=== PATIENT | female | born 1955 | race Caucasian/White ===

== ENCOUNTER → 2016-05-30 | Outpatient (CLI) | payer BC | END | disposition home or self-care (01) | LOC: C.PAPS 16:05 | PROVIDERS: ATTEND Obstetrics & Gynecology | DX: Z01.419 Encounter for gynecological examination (general) (routine) without abnormal findings (principal) ==

== ENCOUNTER → 2017-05-01 | Outpatient (CLI) | payer BC ==
--- NOTE | 2017-05-02 07:47 | MAMMOGRAPHY REPORT ---
BILATERAL DIGITAL SCREENING MAMMOGRAM TOMOSYNTHESIS WITH CAD: 05/01/2017 CLINICAL HISTORY: Routine screening examination. TECHNIQUE: Breast tomosynthesis in addition to standard 2D mammography was performed. Current study was also evaluated with a Computer Aided Detection (CAD) system. COMPARISON: Comparison is made to exams dated: 04/28/2016 mammogram, 04/27/2015 mammogram, 04/24/2014 m ammogram, 04/23/2013 mammogram, 04/20/2012 mammogram, and 04/19/2011 mammogram - [facility]. BREAST COMPOSITION: The tissue of both breasts is heterogeneously dense, which may obscure small mas ses. FINDINGS: An asymmetry in the far superior right breast on the MLO view has decreased in size compari ng back to the 2008 mammograms, confirming benignity. No new suspicious mass, architectural distorti on or cluster of microcalcifications is seen. IMPRESSION: ACR BI-RADS CATEGORY 1: NEGATIVE There is no mammographic evidence of malignancy. A 1 year screening mammogram is recommended. The pa tient will receive written notification of the results. Approximately 10% of breast cancers are not detected with mammography. A negative mammographic report should not delay biopsy if a clinically suggestive mass is present. Katherine Cleary M.D. ay/:05/01/2017 17:00:10 Guest Service Supervisor: Anila HERNANDEZ(Deanna)(M), [facility] letter sent: Normal 1/2 BI-RADS Code: ACR BI-RADS Category 1: Negative
== END | disposition home or self-care (01) ==
LOC: C.MAMM 08:28
PROVIDERS: ATTEND Obstetrics & Gynecology
DX: Z12.31 Encounter for screening mammogram for malignant neoplasm of breast (principal)

== ENCOUNTER 2019-10-18 10:35 | Inpatient (IN) ==
[2019-10-18] MEDS ORDERED: ONDANSETRON INJ 2 MG/ML 2 ML VIAL IV STA ×2 (11:28→14:51)
[2019-10-18] MEDS ORDERED: SODIUM CHLORIDE 0.9% 1000ML 1,000 ML IV SCH (11:29)
--- NOTE | 2019-10-18 11:40 | Emergency Department Note ---
History of Present Illness General Chief complaint: Abdominal Pain Stated complaint: ABD PAIN Time Seen by Provider: 10/18/19 11:07 History of Present Illness Maximum Pain Intensity: 7 Patient is a 63-year-old female with past medical history significant for diabetes, and dyslipidemia who presents the emergency department for evaluation of epigastric abdominal pain times almost 2 days. Patient states that Monday evening she had chicken, Doris he then ate coconut Popsicle for dinner. Afterwards, she developed a very sharp, stabbing epigastric pain that radiated through to her back with associated nausea and vomiting. She rated her pain a 10/10. Pain continued to the evening and made it difficult for her to sleep. She felt a little bit better in the morning and tried to eat, had a mushroom omelette and the pain returned. She again had more nausea and vomiting. She h as not had anything further to eat since then, but has been drinking and tolerating liquids. Pain was a 7/10 yesterday, and persisted this morning, she rates it a 6/10 currently. She now describes it more of an aching discomfort, with associated nausea. She called her primary care provider and was referred to the emergency department. She denies any pain radiate up into her chest, no shortness of breath no pain with deep breathing, no palpitations. Patient reports that she had episodes of pain similar to this in August of this year and last February. She has never had work-up for it. She denies any urinary symptoms other than decreased urinary output. She has had normal bowel movements for her, no blood or melena. No hematemesis. Home Medications Home Medications Medication Instructions Recorded Confirmed Type atorvastatin 40 mg PO HS 03/20/18 10/18/19 History ibuprofen [Advil] 200 mg PO Q6H PRN 10/18/19 10/18/19 History lisinopril 10 mg PO HS 10/18/19 10/18/19 History sitagliptin [Januvia] 50 mg PO QAM 10/18/19 10/18/19 History Allergies Allergy/AdvReac Type Severity Reaction Status Date / Time amoxicillin Allergy Mild Rash Verified 10/18/19 11:45 Past Med/Surg History Medical History Diabetes mellitus, type 2 (Chronic) Genital herpes Hyperlipidemia (Chronic) Varicose veins of legs Surgical History History of bilateral tubal ligation History of colonoscopy History of surgery had endovenous laser therapy 2018 to bilt legs History of tooth extraction wisdom teeth Family History Sister Family history of reaction to anesthesia sister with down's syndrome "never woke up the same after hip replace ment surgery" Mother Family history of diabetes mellitus Father Family history of diabetes mellitus Brother Family history of diabetes mellitus Grandfather Family history of diabetes mellitus maternal and paternal Grandmother Family history of diabetes mellitus maternal and paternal Denies family history of Ovarian cancer Breast cancer Colorectal cancer Social History Preferred Language: Irish Communication Ability: Effective 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 Beliefs That Will Affect Care: None Current Living Situation: Spouse and Family Current Living Situation Comment: Lives with and step son Feels Safe at Home: Yes Smoking Status: Never smoker Second Hand Exposure: Yes ( smokes) ; Hx Alcohol Use: Yes Alcohol type: beer, wine and hard liquor Hx Substance Use: No Review of Systems A total of 10 systems reviewed and were otherwise negative Physical Exam Vital Signs Vital Signs - 24 hr 10/18/19 10:42 10/18/19 11:58 10/18/19 13:49 Temperature 36.8 C Temperature Source Oral Pulse Rate 86 Pulse Rate [Right Finger] 78 64 Pulse Rhythm Regular Pulse Rhythm [Right Finger] Pulse Strength Normal Respiratory Rate 18 18 14 Respiratory Effort / Characteristics Non-Labored Non-Labored Respiratory Depth Normal Normal Respiratory Pattern Regular Blood Pressure 159/99 H Blood Pressure [Left Arm] 190/94 H 184/88 H Blood Pressure Mean 119 Blood Pressure Mean [Left Arm] 126 120 Blood Pressure Position Sitting Pulse Oximetry 94 94 96 Oxygen Delivery Method Room Air Room Air Sepsis Recent Fever Within 48 Hours No Sepsis Action Taken by Nursing No Action Required 10/18/19 15:00 Temperature Temperature Source Pulse Rate Pulse Rate [Right Finger] 74 Pulse Rhythm Pulse Rhythm [Right Finger] Regular Pulse Strength Respiratory Rate 18 Respiratory Effort / Characteristics Non-Labored Respiratory Depth Normal Respiratory Pattern Blood Pressure Blood Pressure [Left Arm] 187/101 H Blood Pressure Mean Blood Pressure Mean [Left Arm] 129 Blood Pressure Position Pulse Oximetry 94 Oxygen Delivery Method Room Air Sepsis Recent Fever Within 48 Hours Sepsis Action Taken by Nursing CONSTITUTIONAL: Patient is a well-appearing 63-year-old female who is awake and alert and in no acute distress. EYES: Pupils equal, round, reactive to light and accommodation. EOMs intact without nystagmus. Sclera are anicteric. ENT: Tympanic membranes intact, with normal landmarks. External canals are clear. Oral and nasopharynx are clear. Mucous membranes are moist, no lesions, tongue and gums appear normal. NECK: No bruits auscultated. Supple without lymphadenopathy. No thyromegaly. No meningeal signs. Full active range of motion without discomfort. CARDIOVASCULAR: Regular rate and rhythm, with normal S1 and S2, no murmur or gallop or rub is heard. No carotid bruits auscultated. No JVD. Peripheral pulses easily palpable. RESPIRATORY: Breath sounds equal and clear to auscultation without wheezes, rales, or rhonchi heard. Full and equal chest expansion without accessory muscle use or retractions. ABDOMEN: Bowel sounds are present. Abdomen is soft, nondistended, nontender to percussion throughout. She is mildly tender in the epigastric region, slightly in the right upper quadrant, without guarding or rebound. Negative Tirado sign. There is no pain in the right lower quadrant over McBurney's point. INTEGUMENTARY: No lesions or rash, normal skin turgor. LYMPH: No lymphadenopathy. Course Course The patient was seen and assessed as above. Old records were reviewed. She presents to the emergency department for evaluation of epigastric abdominal pain with associated nausea and vomiting x2 days. IV lock was initiated and laboratory studies were collected. She was offered medication for discomfort, but declined. She was medicated with Zofran and hydrated with normal saline solution. CBC with differential, CMP, lipase, urine dip were collected. Right upper quadrant ultrasound was performed. Laboratory studies noted a normal white count at 10,200, left shift and bandemia noted however, she is not anemic. Electrolytes and renal functions are within normal limits. Total bilirubin is elevated at 2.5, transaminases are normal, lipase is not elevated. Patient's ultrasound noted gallstones, sludge, gallbladder wall thickening and trace pericholecystic fluid, no ductal dilatation. Findings are concerning for acute cholecystitis. Patient was reassessed after she returned from ultrasound. She was made aware of the results of her laboratory studies and her ultrasound findings. Discussed with her that I would place a consultation with general surgery. Patient was reviewed with Jered Malloy PA-C. Patient was seen by surgical [facility]. They have ordered an MRCP, and according to his dictation have planned to admit the pat ient for possible surgical intervention tomorrow. Patient was reassessed by myself. She was still fairly uncomfortable. She was agreeable to something for discomfort and was ordered morphine 4 mg and Zofran 4 mg IV. Surgical plan was reviewed with her, and she expressed understanding. She is awaiting bed assignment. Administered Medications Discontinued Medications Sodium Chloride (Nss 1000ml) 1,000 mls @ 999 mls/hr IV .Q1H1M ROXANA Stop: 10/18/19 12:29 Last Admin: 10/18/19 11:58 Dose: 999 mls/hr Documented by: [id number] Morphine Sulfate (Morphine Sulfate) 4 mg IV NOW STA Stop: 10/18/19 14:52 Last Admin: 10/18/19 15:08 Dose: 4 mg Documented by: [id number] Ondansetron HCl (Zofran) 4 mg IV NOW STA Stop: 10/18/19 11:29 Last Admin: 10/18/19 11:58 Dose: 4 mg Documented by: [id number] Ondansetron HCl (Zofran) 4 mg IV NOW STA Stop: 10/18/19 14:52 Last Admin: 10/18/19 15:08 Dose: 4 mg Documented by: [id number] Medical Decision Making Differential Diagnosis Differential diagnoses entertained included GERD, gastritis, esophagitis, peptic ulcer disease, perforated ulcer, acute pancreatitis, acute cholecystitis, biliary colic, cholelithiasis, ascending cholangitis, among others. Medical Records Attestation: I reviewed the patient's medical records. Home Medications Current Medication List: was personally reviewed by me Laboratory Data Attestation: I reviewed the patient's lab results. Result diagrams: 10/18/19 11:45 10/18/19 11:45 Lab Results 10/18/19 10/18/19 10/18/19 Range/Units 11:45 11:45 11:45 WBC 10.29 (4.8-10.8) K/uL RBC 4.69 (4.2-5.4) M/uL Hgb 14.2 (12.0-16.0) g/dL Hct 41.4 (37-47) % MCV 88.3 (80-100) fL MCH 30.3 (25-34) pg MCHC 34.3 (32-36) g/dL RDW Std Deviation 41.3 (36.4-46.3) fL RDW Coeff of Debra 12.9 (11.5-14.5) % Plt Count 251 (130-400) K/uL MPV 10.2 (7.4-10.4) fL Immature Gran % (Auto) 0.3 % Neut % (Auto) 77.1 % Lymph % (Auto) 15.4 % Gregory % (Auto) 6.8 % Eos % (Auto) 0.3 % Baso % (Auto) 0.1 % Immature Gran # (Auto) 0.03 H (0.00-0.02) K/uL Neut # (Auto) 7.94 H (1.4-6.5) K/uL Lymph # (Auto) 1.58 (1.2-3.4) K/uL Gregory # (Auto) 0.70 H (0.11-0.59) K/uL Eos # (Auto) 0.03 (0-0.5) K/uL Baso # (Auto) 0.01 (0-0.2) K/uL Sodium 136 (136-145) mmol/L Potassium 3.6 (3.5-5.1) mmol/L Chloride 105 (98-107) mmol/L Carbon Dioxide 26 (21-32) mmol/L Anion Gap 5.0 (3-11) BUN 9 (7-18) mg/dl Creatinine 0.74 (0.6-1.2) mg/dl Est Cr Clr Drug Dosing 67.2 ml/min Est GFR ( Amer) 99.9 Est GFR (Non-Af Amer) 86.2 BUN/Creatinine Ratio 11.9 (10-20) Glucose 246 H (70-99) mg/dl Calcium 9.3 (8.5-10.1) mg/dl Total Bilirubin 2.5 H (0.2-1) mg/dl AST 12 L (15-37) U/L ALT 35 (12-78) U/L Alkaline Phosphatase 94 (45-117) U/L Total Protein 7.7 (6.4-8.2) gm/dl Albumin 4.0 (3.4-5.0) gm/dl Globulin 3.7 (2.5-4.0) gm/dl Albumin/Globulin Ratio 1.1 (0.9-2) Lipase 195 (73-393) U/L Urine Color Yellow Urine Appearance Clear (Clear) Urine pH 7.0 (4.5-7.5) POC Urine pH (4.5-7.5) Ur Specific Opal 1.012 (1.000-1.030) Urine Protein 2+ H (Negative) POC Urine Protein (Negative) Urine Glucose (UA) 2+ H (Negative) POC Ur Glucose (UA) (Normal) Urine Ketones Trace H (Negative) POC Urine Ketones (Negative) Urine Blood 1+ H (Negative) POC Urine Blood (Negative) Urine Nitrite Negative (Negative) POC Urine Nitrite (Negative) Urine Bilirubin Negative (Negative) POC Urine Bilirubin (Negative) Urine Urobilinogen Negative (Negative) POC Urine Urobilinogen (Normal) Ur Leukocyte Esterase Negative (Negative) POC U Leukocyte Esteras (Negative) Urine WBC (Auto) 1-5 (0-5) /hpf Urine RBC (Auto) 5-10 H (0-4) /hpf U Hyaline Cast (Auto) 0 (0-5) /lpf U Epithel Cells (Auto) 5-10 H (0-5) /lpf Urine Bacteria (Auto) Negative (Negative) 10/18/19 Range/Units Unknown WBC (4.8-10.8) K/uL RBC (4.2-5.4) M/uL Hgb (12.0-16.0) g/dL Hct (37-47) % MCV (80-100) fL MCH (25-34) pg MCHC (32-36) g/dL RDW Std Deviation (36.4-46.3) fL RDW Coeff of Debra (11.5-14.5) % Plt Count (130-400) K/uL MPV (7.4-10.4) fL Immature Gran % (Auto) % Neut % (Auto) % Lymph % (Auto) % Gregory % (Auto) % Eos % (Auto) % Baso % (Auto) % Immature Gran # (Auto) (0.00-0.02) K/uL Neut # (Auto) (1.4-6.5) K/uL Lymph # (Auto) (1.2-3.4) K/uL Gregory # (Auto) (0.11-0.59) K/uL Eos # (Auto) (0-0.5) K/uL Baso # (Auto) (0-0.2) K/uL Sodium (136-145) mmol/L Potassium (3.5-5.1) mmol/L Chloride (98-107) mmol/L Carbon Dioxide (21-32) mmol/L Anion Gap (3-11) BUN (7-18) mg/dl Creatinine (0.6-1.2) mg/dl Est Cr Clr Drug Dosing ml/min Est GFR ( Amer) Est GFR (Non-Af Amer) BUN/Creatinine Ratio (10-20) Glucose (70-99) mg/dl Calcium (8.5-10.1) mg/dl Total Bilirubin (0.2-1) mg/dl AST (15-37) U/L ALT (12-78) U/L Alkaline Phosphatase (45-117) U/L Total Protein (6.4-8.2) gm/dl Albumin (3.4-5.0) gm/dl Globulin (2.5-4.0) gm/dl Albumin/Globulin Ratio (0.9-2) Lipase (73-393) U/L Urine Color Urine Appearance (Clear) Urine pH (4.5-7.5) POC Urine pH 5 (4.5-7.5) Ur Specific Opal (1.000-1.030) Urine Protein (Negative) POC Urine Protein 3+ H (Negative) Urine Glucose (UA) (Negative) POC Ur Glucose (UA) 1000 H (Normal) Urine Ketones (Negative) POC Urine Ketones Negative (Negative) Urine Blood (Negative) POC Urine Blood 250 H (Negative) Urine Nitrite (Negative) POC Urine Nitrite Negative (Negative) Urine Bilirubin (Negative) POC Urine Bilirubin Negative (Negative) Urine Urobilinogen (Negative) POC Urine Urobilinogen Normal (Normal) Ur Leukocyte Esterase (Negative) POC U Leukocyte Esteras Negative (Negative) Urine WBC (Auto) (0-5) /hpf Urine RBC (Auto) (0-4) /hpf U Hyaline Cast (Auto) (0-5) /lpf U Epithel Cells (Auto) (0-5) /lpf Urine Bacteria (Auto) (Negative) Imaging Data Attestation: I personally reviewed and interpreted this imaging study as follows: Radiologist's Impression: BILIARY ULTRASOUND CLINICAL HISTORY: EPIGASTRIC PAIN X 2 DAYS COMPARISON STUDY: No previous studies for comparison. FINDINGS: The pancreas appears sonographically normal. There is a 1 cm nodule adjacent to the pancreatic head likely representing a peripancreatic lymph node. No focal hepatic masses are visualized. There is no ductal dilatation. The common bile duct measures 3.5 mm. There is no right-sided hydronephrosis. There is gallbladder wall thickening (3.9 mm.) The gallbladder contains stones and tumefactive sludge. There is persistent narrowing of the midportion of the gallbladder. A gallbladder stricture or mass cannot be excluded. IMPRESSION: 1. Gallstones and tumefactive sludge 2. Gallbladder wall thickening and trace pericholecystic fluid. 3. In the setting of right upper quadrant abdominal pain, the findings are suspicious for acute cholecystitis. A nuclear medicine hepatobiliary study could be obtained in follow-up to evaluate cystic duct patency is deemed clinically appropriate Blood Pressure Blood Pressure Findings: Elevated blood pressure Blood Pressure Disposition: elevated BP felt to be situational MDM Narrative See ED Course. Impression & Plan Acute cholecystitis Discharge Plan Visit Data Chief Complaint: Abdominal Pain Stated Complaint: ABD PAIN ED Provider: Grayson Garica ED Midlevel Provider: Paxton Ramírez Discharge Problem: Acute cholecystitis Patient Disposition: Being Evaluated by Surgeon Discharge Instructions Interventions: ED Discharge Assessment Last Done: 10/18/19 16:20 Forms Stand Alone Forms: [facility], Virtual Emergency Department, Important Visit Information Prescriptions Prescriptions: No Action atorvastatin 40 mg Tablet 40 mg PO HS RF: 0 lisinopril 10 mg tablet 10 mg PO HS RF: 0 Januvia 50 mg tablet 50 mg PO QAM RF: 0 ibuprofen [Advil] 200 mg Tablet 200 mg PO Q6H PRN (Reason: Pain) RF: 0 Referrals Referrals: Kwasi Gallardo Jr, DO [Primary Care Provider] -
[2019-10-18 12:06] LABS: POC Urine Bilirubin Negative (Negative); POC Urine Blood 250 (Negative); POC Urine Glucose 1000 (Normal); POC Urine Ketones Negative (Negative); POC Urine Leukocytes Negative (Negative); POC Urine Nitrite Negative (Negative); POC Urine Protein 3+ (Negative); POC Urine Urobilinogen Normal (Normal); POC Urine pH 5 (4.5-7.5)
[2019-10-18 12:13] LABS: Basophils # (auto) 0.01 K/uL (0-0.2); Basophils % (auto) 0.1 %; Eosinophils # (auto) 0.03 K/uL (0-0.5); Eosinophils % (auto) 0.3 %; Hematocrit (blood only) 41.4 % (37-47); Hemoglobin 14.2 g/dL (12.0-16.0); Immature Granulocytes # (auto) 0.03 K/uL (0.00-0.02); Immature Granulocytes % (auto) 0.3 %; Lymphocytes # (auto) 1.58 K/uL (1.2-3.4); Lymphocytes % (auto) 15.4 %; Mean Corpuscular Hemoglobin 30.3 pg (25-34); Mean Corpuscular Hgb Conc 34.3 g/dL (32-36); Mean Corpuscular Volume 88.3 fL (80-100); Mean Platelet Volume 10.2 fL (7.4-10.4); Monocytes % (auto) 6.8 %; Neutrophils # (auto) 7.94 K/uL (1.4-6.5); Neutrophils % (auto) 77.1 %; Platelet Count 251 K/uL (130-400); RDW Coefficient of Variation 12.9 % (11.5-14.5); RDW Standard Deviation 41.3 fL (36.4-46.3); Red Blood Count 4.69 M/uL (4.2-5.4); White Blood Count 10.29 K/uL (4.8-10.8)
[2019-10-18 12:38] LABS: BUN Creatinine Ratio 11.9 (10-20); Calcium 9.3 mg/dl (8.5-10.1); Creatinine Clr Calc Pharmacy 67.2 ml/min; Est GFR (African American) 99.9; Est GFR (Non-African American) 86.2; Potassium 3.6 mmol/L (3.5-5.1)
[2019-10-18 12:41] LABS: Albumin Globulin Ratio 1.1 (0.9-2); Bilirubin,Total 2.5 mg/dl (0.2-1); Globulin 3.7 gm/dl (2.5-4.0); Total Protein 7.7 gm/dl (6.4-8.2)
--- NOTE | 2019-10-18 12:46 | Ultrasound Report ---
BILIARY ULTRASOUND CLINICAL HISTORY: EPIGASTRIC PAIN X 2 DAYS COMPARISON STUDY: No previous studies for comparison. FINDINGS: The pancreas appears sonographically normal. There is a 1 cm nodule adjacent to the pancrea tic head likely representing a peripancreatic lymph node. No focal hepatic masses are visualized. There is no ductal dilatation. The common bile duct measures 3.5 mm. There is no right-sided hydronephrosis. There is gallbladder wall thickening (3.9 mm.) The gallbladder contains stones and tumefactive sludg e. There is persistent narrowing of the midportion of the gallbladder. A gallbladder stricture or mas s cannot be excluded. IMPRESSION: 1. Gallstones and tumefactive sludge 2. Gallbladder wall thickening and trace pericholecystic fluid. 3. In the setting of right upper quadrant abdominal pain, the findings are suspicious for acute sharmaine cystitis. A nuclear medicine hepatobiliary study could be obtained in follow-up to evaluate cystic du ct patency is deemed clinically appropriate ACT 112: Negative or not required by law. Electronically signed by: Keo Leslie M.D. 10/18/2019 12:45 PM
--- NOTE | 2019-10-18 14:24 | History & Physical Report ---
Date of Service October 18, 2019 Assessment & Plan (1) Cholelithiasis: early acute vs chronic cholecystitis bili 2.5, will obtain MRCP to r/o choledocholithiasis lap sharmaine in AM with possible IOC or ERCP depending on results of MRCP History of Present Illness Primary Care Provider: Kwasi Gallardo Jr, DO 63 y/o female with epigastric pain, back pain and bloating that began two days ago after dinner. Had two other episodes since February but not as severe and resolved within a few hours. Allergies Allergy/AdvReac Type Severity Reaction Status Date / Time amoxicillin Allergy Mild Rash Verified 10/18/19 11:45 Home Medications Home Medications Medication Instructions Recorded Confirmed Type atorvastatin 40 mg PO HS 03/20/18 10/18/19 History ibuprofen [Advil] 200 mg PO Q6H PRN 10/18/19 10/18/19 History lisinopril 10 mg PO HS 10/18/19 10/18/19 History sitagliptin [Januvia] 50 mg PO QAM 10/18/19 10/18/19 History Past Med/Surg History Medical History Diabetes mellitus, type 2 (Chronic) Genital herpes Hyperlipidemia (Chronic) Varicose veins of legs Surgical History History of bilateral tubal ligation History of colonoscopy History of surgery had endovenous laser therapy 2018 to bilt legs History of tooth extraction wisdom teeth Family History Sister Family history of reaction to anesthesia sister with down's syndrome "never woke up the same after hip replacement surgery" Mother Family history of diabetes mellitus Father Family history of diabetes mellitus Brother Family history of diabetes mellitus Grandfather Family history of diabetes mellitus maternal and paternal Grandmother Family history of diabetes mellitus maternal and paternal Denies family history of Ovarian cancer Breast cancer Colorectal cancer Social History Preferred Language: Albanian Communication Ability: Effective 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 Beliefs That Will Affect Care: None Current Living Situation: Spouse and Family Current Living Situation Comment: Lives with and step son Feels Safe at Home: Yes Smoking Status: Never smoker Second Hand Exposure: Yes ( smokes) ; Hx Alcohol Use: Yes Alcohol type: beer, wine and hard liquor Hx Substance Use: No Review of Systems Constitutional: + anorexia; no fever and no chills Gastrointestinal: + abdominal pain, + bloating and + vomiting (at onset) Physical Exam Constitutional: WD/WN, vitals as above Respiratory: normal respiratory effort, lungs clear to auscultation Cardiovascular: RRR, no murmur, no edema Gastrointestinal (Abdomen): Inspection/Auscultation: abdomen not distended Percussion/Palpation: + abdomen tender (epigastric) and abdomen soft Skin: no rashes, warm and dry Results & Data Results & Data ([facility]) Vital Signs (Past 12 Hours) Vital Signs Temp Pulse Pulse Resp BP BP Pulse Ox 10/18/19 13:49 64 14 184/88 H 96 10/18/19 11:58 78 18 190/94 H 94 10/18/19 10:42 36.8 C 86 18 159/99 H 94 PG Care Time/CCT Total # of Minutes Spent Total Time Spent with Patient: Total time spent is greater than 50% in coordination of care (as documented) at patient's floor/unit and/or counseling patient: Coding Level of Care Code 18012 Initial Inpt Care Lvl 1 Diagnoses Cholelithiasis K80.20
[2019-10-18 14:47] LABS: Appearance Urine Clear (Clear); Bacteria Urine Automated Negative (Negative); Bilirubin Urine Negative (Negative); Blood Urine 1+ (Negative); Cast Urine Automated 0 /lpf (0-5); Color Urine Yellow; Glucose Urine UA 2+ (Negative); Ketones Urine Trace (Negative); Leukocyte Esterase Urine Negative (Negative); Nitrite Urine Negative (Negative); Protein Urine 2+ (Negative); Specific Gravity Urine 1.012 (1.000-1.030); Urobilinogen Urine Negative (Negative)
[2019-10-18] MEDS ORDERED: MoRPHine SULFATE 4 MG/ML 1 ML CARP\\VIAL IV STA (14:51)
--- NOTE | 2019-10-18 16:19 | Magnetic Resonance Report ---
Study: MRCP HISTORY: Right upper quadrant pain. Abnormal ultrasound. COMPARISON: Ultrasound same date FINDINGS: Combination of gallstones and sludge within the gallbladder lumen. Mild wall thickening wit h a small amount of pericholecystic edematous change. This is consistent with acute acute cholecystit is. The common bile duct measures 6 mm. Small polypoid filling defect mid common duct versus artifact. Liver is uniform throughout. Components of fatty infiltration are present. The pancreas and spleen ar e unremarkable. There is a 1.5 cm right renal cyst. No evidence for renal hydronephrosis. Signal carlos acteristics of the bony structures are unremarkable. IMPRESSION: 1. Acute cholecystitis. 2. Small polypoid filling defect versus artifact mid common duct. 3. No evidence for choledocholithiasis. 4. Fatty replacement of the liver. 5. Otherwise negative study. Electronically signed by: Timur Cartagena M.D. 10/18/2019 4:17 PM
[2019-10-18] MEDS ORDERED: GLUCAGON FOR INJ 1 MG VIAL SQ PRN (16:45)
[2019-10-18] MEDS ORDERED: CARBOHYDRATES FOR HYPOGLYCEMIA PO PRN (16:45)
[2019-10-18] MEDS ORDERED: GLUCOSE 40% GEL 15 GM TUBE PO PRN (16:45)
[2019-10-18] MEDS ORDERED: GLUCOSE 10 TABS/TUBE PO PRN (16:45)
[2019-10-18] MEDS ORDERED: DEXTROSE 50% 50 ML SYRINGE IV PRN (16:45)
[2019-10-18] MEDS ORDERED: Nursing to Pharmacy Communication ONE (16:52)
--- NOTE | 2019-10-18 17:01 | Electrocardiogram Report ---
Test Reason : Blood Pressure : / mmHG Vent. Rate : 075 BPM Atrial Rate : 075 BPM P-R Int : 174 ms QRS Dur : 072 ms QT Int : 390 ms P-R-T Axes : 000 -01 016 degrees QTc Int : 435 ms Normal sinus rhythm Poor R wave progression, consider anterior NM vs. lead placement vs. LVH Abnormal ECG No previous ECGs available Confirmed by David Oliveira ([id number]) on 10/18/2019 5:00:54 PM Referred By: Kwasi Gallardo Confirmed By:David Oliveira
[2019-10-18] MEDS: LACTATED RINGER'S 1,000 ML IV SCH (17:10)
[2019-10-18] MEDS: INSULIN ASPART 100 UNITS/ML 3 ML PEN SC SCH (18:32)
[2019-10-18] MEDS: lisinopriL 10 MG TAB PO SCH (20:37)
[2019-10-18] MEDS: ACETAMINOPHEN 325 MG TAB PO PRN (20:40)
[2019-10-19] MEDS: INSULIN ASPART 100 UNITS/ML 3 ML PEN SC SCH ×6 (00:24→21:23)
[2019-10-19] MEDS: LACTATED RINGER'S 1,000 ML IV SCH ×3 (03:25→15:30)
[2019-10-19 06:01] LABS: Basophils # (auto) 0.01 K/uL (0-0.2); Basophils % (auto) 0.1 %; Eosinophils # (auto) 0.13 K/uL (0-0.5); Eosinophils % (auto) 1.8 %; Hemoglobin 12.2 g/dL (12.0-16.0); Immature Granulocytes # (auto) 0.02 K/uL (0.00-0.02); Immature Granulocytes % (auto) 0.3 %; Lymphocytes # (auto) 1.41 K/uL (1.2-3.4); Lymphocytes % (auto) 19.1 %; Mean Corpuscular Hemoglobin 30.7 pg (25-34); Mean Corpuscular Hgb Conc 33.9 g/dL (32-36); Mean Corpuscular Volume 90.5 fL (80-100); Mean Platelet Volume 9.6 fL (7.4-10.4); Monocytes # (auto) 0.82 K/uL (0.11-0.59); Monocytes % (auto) 11.1 %; Neutrophils # (auto) 4.99 K/uL (1.4-6.5); Neutrophils % (auto) 67.6 %; Platelet Count 201 K/uL (130-400); RDW Coefficient of Variation 12.9 % (11.5-14.5); RDW Standard Deviation 42.7 fL (36.4-46.3); Red Blood Count 3.98 M/uL (4.2-5.4); White Blood Count 7.38 K/uL (4.8-10.8)
[2019-10-19 06:53] LABS: Albumin Level 3.1 gm/dl (3.4-5.0); BUN Creatinine Ratio 12.2 (10-20); Bilirubin Direct 0.3 mg/dl (0-0.2); Bilirubin,Total 2.7 mg/dl (0.2-1); Calcium 8.5 mg/dl (8.5-10.1); Creatinine Clr Calc Pharmacy 69.1 ml/min; Est GFR (African American) 103.3; Est GFR (Non-African American) 89.1; Potassium 3.7 mmol/L (3.5-5.1); Total Protein 6.3 gm/dl (6.4-8.2)
--- NOTE | 2019-10-19 09:21 | Surgery Progress Note ---
Date of Service October 19, 2019 Assessment & Plan (1) Acute cholecystitis: bili up to 2.7 discussed MRCP with GI, will proceed with lap sharmaine possible IOC and plan for EUS later as above. discussed risks/options. appreciate GI help. will perform lap sharmaine today with IOC. repeat LFT's tomorrow. discussed risks ( bleeding/infection/dvt/pe/injury to another organ such as bile ducts, bowel etc....) questions answered. will proceed with lap sharmaine/IOC today. Subjective feels better Physical Exam Gastrointestinal (Abdomen): Percussion/Palpation: + abdomen tender (improved) and abdomen soft Results & Data Vital Signs (Past 12 Hours) Vital Signs Temp Pulse Resp BP Pulse Ox 10/19/19 07:45 36.9 C 81 20 116/71 93 10/18/19 22:50 37.0 C 75 15 114/69 95 PG Care Time/CCT Total # of Minutes Spent Total Time Spent with Patient: Total time spent is greater than 50% in coordination of care (as documented) at patient's floor/unit and/or counseling patient: Coding Level of Care Code None Diagnoses Acute cholecystitis K81.0
[2019-10-19] MEDS ORDERED: ONDANSETRON INJ 2 MG/ML 2 ML VIAL IV PRN (11:03)
[2019-10-19] MEDS ORDERED: fentaNYL citrate 100 MCG/2 ML VIAL IV PRN (11:03)
[2019-10-19] MEDS ORDERED: ePHEDrine sulfate 50 MG/ML AMP IV PRN (11:03)
[2019-10-19] MEDS ORDERED: ATROPINE SULFATE 0.1 MG/ML 10ML SYR IV PRN (11:03)
--- NOTE | 2019-10-19 12:03 | Anesthesiology Consultation ---
Date of Service October 19, 2019 Assessment & Plan (1) Encounter for pre-operative examination: Chart Review Chart Review: Acceptable Risk for Surgery Consults Requested none ASA ASA3 Proposed Anesthesia Anesthesia Type: General Risk / Benefits Reviewed With: PT / POA / Parent / Guardian, Accepts Plan and Informed Consent Obtained History Surgery Operation Date: 10/19/19 12:50 Proposed Procedures p Laparoscopic Cholecystectomy, Possible Cholangiogram - Jose Knox, DO Height/Weight Height: 5 ft 4 in Weight: 60.5 kg Allergies Allergy/AdvReac Type Severity Reaction Status Date / Time amoxicillin Allergy Mild Rash Verified 10/18/19 11:45 Medications Home Medications Medication Instructions Recorded Confirmed Last Taken atorvastatin 40 mg PO HS 03/20/18 10/18/19 10/16/19 ibuprofen [Advil] 200 mg PO Q6H PRN 10/18/19 10/18/19 10/17/19 13:00 200 mg lisinopril 10 mg PO HS 10/18/19 10/18/19 10/16/19 sitagliptin [Januvia] 50 mg PO QAM 10/18/19 10/18/19 10/16/19 Active Medications Generic Name Dose Route Start Last Admin Trade Name Freq PRN Reason Stop Dose Admin Acetaminophen 650 mg 10/18/19 16:45 10/18/19 20:40 Tylenol PO 11/17/19 16:44 650 mg Q6H PRN Administration MILD Pain (Scale 1,2,3) Lactated Ringer's 1,000 mls @ 100 mls/hr 10/18/19 16:45 10/19/19 03:25 Lr IV 11/17/19 16:44 100 mls/hr .Q10H ROXANA Administration Insulin Aspart 0 units 10/18/19 18:00 10/19/19 06:14 Novolog Flexpen SC 11/17/19 17:59 2 units Q6 ROXANA Administration Lisinopril 10 mg 10/18/19 21:00 10/18/19 20:37 Zestril PO 11/17/19 20:59 10 mg HS ROXANA Administration NPO Date Last Intake of Fluids: 10/18/19 Time Last Intake of Fluids: 07:30 Last Intake of Fluids Comment: coffee Date Last Intake of Solids: 10/17/19 Past Medical History Medical History (Updated 10/19/19 @ 12:02 by Kodak Morris DO) Diabetes mellitus, type 2 (Chronic) Genital herpes Hyperlipidemia (Chronic) Hypertension Varicose veins of legs Exercise / Class Metabolic Activity II 4-5 Yardwork/Stairs/Walk up hill Past Family History Family History Sister Family history of reaction to anesthesia sister with down's syndrome "never woke up the same after hip replacement surgery" Mother Family history of diabetes mellitus Father Family history of diabetes mellitus Brother Family history of diabetes mellitus Grandfather Family history of diabetes mellitus maternal and paternal Grandmother Family history of diabetes mellitus maternal and paternal Denies family history of Ovarian cancer Breast cancer Colorectal cancer Past Surgical History Surgical History History of bilateral tubal ligation History of colonoscopy History of surgery had endovenous laser therapy 2018 to bilt legs History of tooth extraction wisdom teeth Past Anesthesia History No Hx of Anesthesia Complications and No Family Hx of Anesthesia Complications History of PONV No Hx of PONV and No Hx of Motion Sickness Social History Smoking Status: Never smoker Do You Dip or Chew Tobacco: No Hx Alcohol Use: Yes Alcohol type: beer, wine and hard liquor alcohol intake frequency: holidays/special occasions only Hx Substance Use: No substance use type: does not use Physical Exam Vital Signs Last Vital Signs Temp 98.4 F 10/19/19 07:45 Pulse 81 10/19/19 07:45 Resp 20 10/19/19 07:45 BP 116/71 10/19/19 07:45 Pulse Ox 93 10/19/19 07:45 ENMT Mouth: no dentition abnormality Thyromental Distance: > or= 3.5 Finger Breadths Mallampati Class: II Neck normal visual inspection Respiratory normal respiratory effort Auscultation: lungs clear to auscultation bilaterally Cardiovascular Rate/Rhythm: regular rate and regular rhythm Testing Laboratory Results 10/19/19 05:50 10/19/19 05:50 Urine Color Yellow 10/18/19 11:45 Urine Appearance Clear (Clear) 10/18/19 11:45 Urine pH 7.0 (4.5-7.5) 10/18/19 11:45 Ur Specific [place] 1.012 (1.000-1.030) 10/18/19 11:45 Urine Protein 2+ (Negative) H 10/18/19 11:45 Urine Glucose (UA) 2+ (Negative) H 10/18/19 11:45 Urine Ketones Trace (Negative) H 10/18/19 11:45 Urine Nitrite Negative (Negative) 10/18/19 11:45 Ur Leukocyte Esterase Negative (Negative) 10/18/19 11:45 Urine WBC (Auto) 1-5 /hpf (0-5) 10/18/19 11:45 Urine RBC (Auto) 5-10 /hpf (0-4) H 10/18/19 11:45 U Hyaline Cast (Auto) 0 /lpf (0-5) 10/18/19 11:45 U Epithel Cells (Auto) 5-10 /lpf (0-5) H 10/18/19 11:45 Urine Bacteria (Auto) Negative (Negative) 10/18/19 11:45 10/19/19 10/19/19 10/18/19 11:36 06:06 23:59 POC Glucose 161 H 186 H 159 H
[2019-10-19] MEDS ORDERED: ACETAMINOPHEN 1000 MG/100 ML IV IV ONE (12:10)
[2019-10-19] MEDS ORDERED: fentaNYL citrate 100 MCG/2 ML VIAL ONE ×2 (12:12→12:54)
[2019-10-19] MEDS ORDERED: MIDAZOLAM HCL 1 MG/ML 2ML VIAL ONE (12:12)
[2019-10-19] MEDS ORDERED: LIDOCAINE HCL 2% 2 ML VIAL/AMP(20MG/ML) INFIL ONE (12:17)
[2019-10-19] MEDS ORDERED: ONDANSETRON INJ 2 MG/ML 2 ML VIAL ONE (12:17)
[2019-10-19] MEDS ORDERED: ROCURONIUM BROMIDE 10 MG/ML 5 ML VIAL ONE (12:17)
[2019-10-19] MEDS ORDERED: PROPOFOL IV EMULSION 10 MG/ML 20 ML VIAL IV ONE (12:17)
[2019-10-19] MEDS ORDERED: BUPIVACAINE 0.5 % 5 MG/1 ML MPF 30ML VIAL ONE (12:37)
[2019-10-19] MEDS ORDERED: EPINEPHrine INJ 1 MG/ML AMP ONE (12:37)
[2019-10-19] MEDS ORDERED: CONRAY 60% 50 ML VIAL ONE (12:42)
[2019-10-19] MEDS ORDERED: CLINDAMYCIN PHOS 300 MG/2 ML VIAL ONE (12:50)
[2019-10-19] MEDS ORDERED: NEOSTIGMINE METHYLSULFATE 5 MG/5 ML SYR ONE (13:06)
[2019-10-19] MEDS ORDERED: METOPROLOL TARTRATE 1 MG/ML VIAL IV ONE (13:06)
[2019-10-19] MEDS ORDERED: GLYCOPYRROLATE 0.2 MG/ML VIAL ONE (13:06)
[2019-10-19] MEDS ORDERED: CLINDAMYCIN 600 MG/54 ML BAG IV SCH ×2 (13:15)
[2019-10-19] MEDS ORDERED: HYDROmorphone INJ 2 MG/ML SYR/VIAL ONE (13:38)
--- NOTE | 2019-10-19 14:22 | Operative Report ---
PG Post Operative Report Pre & Post Diagnosis Operation Date: 10/19/19 12:50 Pre-Op Diagnosis: CHOLELITHIASIS Post-Op Diagnosis: CHOLELITHIASIS I identified the patient and participated in the time-out.: Yes Procedure Operation Date: 10/19/19 12:50 Actual Procedures p Laparoscopic Cholecystectomy (Not Applicable) - Jose Knox DO Surgeon Jose Knox DO Plate Straightener leslie Sandoval Estimated Blood Loss 25 Findings Consistent with Post-Op Diagnosis Specimens gallbladder Description of Procedure After informed consent was obtained the patient was taken to the operating room and placed in supine position. After successful intubation the abdomen was sterilely prepped and draped in usual fashion. A supraumbilical incision was made with an 11 blade scalpel and carried down through the soft tissue using cautery. The anterior rectus fascia was opened using cautery and two #0 Vicryl stay sutures were placed. Peritoneum was entered using blunt finger penetration and a finger sweep performed. A 12 mm Betts trocar was placed and the abdomen was insufflated 18 mmHg. Laparoscope was inserted and the abdomen examined in 360 degrees. The gallbladder was acutely inflamed. No other abnormalities were identified. A subxiphoid 5 mm port which would later be converted to a 12 mm port was placed as well as 2 right upper quadrant 5 mm ports. The patient was placed in a reverse Trendelenburg position and airplaned to the left. The gallbladder was extremely firm with a lot of inflammation. We attempted to decompress the gallbladder with a gallbladder needle. However when we cannulated the gallbladder we were unable to draw any bile out of it. Small amounts of blood were obtained but again the gallbladder was very firm. We began by taking down adhesions around the neck of the gallbladder itself using sharp scissor lysis as well as blunt dissection. We continued to use [place] dissectors to try and free up the neck of the gallbladder. Everything was very contracted in this area making the dissection very tedious and very difficult. The node of Calot was enlarged. We freed this up and detached it and kept it to send with the pathology at the end of the case. Eventually I was able to come down the neck of the gallbladder and create a small window behind the gallbladder neck/cystic duct junction. My intention was to perform a cholangiogram. Initially I placed a large clip proximal on the cystic duct. When I tried to divide the cystic duct there really was minimal lumen. We did try to cannulate the cystic duct but I was unable to do so. It was extremely small short and contracted and I felt the risk benefit did not warrant continuing to try and obtain the cholangiogram. Eventually I gave up on the cholangiogram and clipped the distal end of the duct twice and transected it using a scissor. The cystic artery was identified skeletonized clipped and divided as well. Cautery was used to remove the gallbladder from the gallbladder fossa. Was placed into an Endo Catch bag along with the note of Mario. It was removed from the camera port site. Thorough irrigation of the right upper quadrant was performed. Any small bleeding points in the gallbladder fossa were controlled using cautery. A 10 flat Sedrick-Cardozo drain was placed in the right upper quadrant and brought out through 1 of the trocar sites and secured the skin using 2-0 nylon. At the end of the procedure there was adequate hemostasis. There was no evidence of any bile leaks. A final look around the abdomen showed no other abnormalities. The trochars were all removed and the abdomen desufflated. The fascia of the camera port was closed using 0 Vicryl with [id number] fashion. Wounds were all irrigated and closed using 4-0 Monocryl. Marcaine was injected around the for postoperative analgesia and skin glue used as dressings. The patient was awakened extubated transferred recovery in stable condition. My physician diver assistant was present for the entire case. He helped prep the patient. Helped with exposure throughout my dissection as well as with wound closure and dressing placement. I attest to the content of the Intraoperative Record and any orders documented therein. Any exceptions are noted below.
--- NOTE | 2019-10-19 14:36 | Gastrointestinal Consultation ---
Date of Consultation October 19, 2019 Assessment & Plan (1) Abnormal magnetic resonance cholangiopancreatography (MRCP): (2) Biliary obstruction: small polypoind lesion in the CBD, ?neoplastic i.e. cholangiocarcinoma vs. benign polyp vs. stone/sludge. She is s/p lap CCY today. Recs: --keep NPO --trend LFTs daily --plan for EUS with FNA and ERCP on friday 10/20, sooner if her LFTs worsen --rest as per primary team Thank you for allowing me to participate in the care of this patient. History of Present Illness Attending Physician: Jose Knox, DO 63 yo female here with cholecystitis. GI consulted for filling defect/abnormal MRCP and possible biliary obstruction. She initially presented with abdominal pains for a few days, was found to have cholecystitis on imaging. However on MRCP she was also noted to have a polypoid lesion in the mid-CBD causing a filling defect as well as cholelithiasis and sludge. total bilirubin noted to be 2.7, afebrile and without leukocytosis. She underwent lap CCY today. labs reviewed. Allergies Allergy/AdvReac Type Severity Reaction Status Date / Time amoxicillin Allergy Mild Rash Verified 10/18/19 11:45 Home Medications Home Medications Medication Instructions Recorded Confirmed Type atorvastatin 40 mg PO HS 03/20/18 10/18/19 History ibuprofen [Advil] 200 mg PO Q6H PRN 10/18/19 10/18/19 History lisinopril 10 mg PO HS 10/18/19 10/18/19 History sitagliptin [Januvia] 50 mg PO QAM 10/18/19 10/18/19 History hydrocodone-acetaminophen [[place]] 1 - 2 tab PO Q4H PRN #15 tab 10/19/19 Rx Patient History Medical History Diabetes mellitus, type 2 (Chronic) Genital herpes Hyperlipidemia (Chronic) Hypertension Varicose veins of legs Surgical History History of bilateral tubal ligation History of colonoscopy History of surgery had endovenous laser therapy 2018 to bilt legs History of tooth extraction wisdom teeth Family History Sister Family history of reaction to anesthesia sister with down's syndrome "never woke up the same after hip replacement surgery" Mother Family history of diabetes mellitus Father Family history of diabetes mellitus Brother Family history of diabetes mellitus Grandfather Family history of diabetes mellitus maternal and paternal Grandmother Family history of diabetes mellitus maternal and paternal Denies family history of Ovarian cancer Breast cancer Colorectal cancer Social History Preferred Language: [place] Communication Ability: Effective Rug Designer Required: No Beliefs That Will Affect Care: None Current Living Situation: Family Current Living Situation Comment: Lives with and step son Other Information That Helps Us Care for You: No Feels Safe at Home: Yes Safety Concerns: Feels Safe At This Time Smoking Status: Never smoker Do You Dip or Chew Tobacco: No ; Second Hand Exposure: Yes ( smokes) ; Hx Alcohol Use: Yes Alcohol type: beer, wine and hard liquor Hx Substance Use: No Review of Systems Constitutional: no fever, no chills and no weight loss Eyes: as per Subjective / HPI Ear, Nose, Mouth, Throat: as per Subjective / HPI Respiratory: no dyspnea and no dyspnea on exertion Cardiovascular: no chest pain and no palpitations Gastrointestinal: as per Subjective / HPI Musculoskeletal: no joint pain and no swelling Integumentary: no rash and no lesions Neurologic: no numbness and no paresthesia Psychiatric: no depression and no anxiety Endocrine: no fatigue Hematologic / Lymphatic: no easy bleeding and no easy bruising Physical Exam Constitutional: WD/WN, vitals as above Eyes: EOM intact bilaterally Neck: normal visual inspection Respiratory: normal respiratory effort, lungs clear to auscultation Cardiovascular: RRR, no murmur, no edema Gastrointestinal (Abdomen): Inspection/Auscultation: abdomen normal to inspection; abdomen not distended Percussion/Palpation: abdomen soft; abdomen nontender and no hepatosplenomegaly Musculoskeletal: Extremities: no cyanosis Gait: normal gait Skin: no rashes, warm and dry Neurologic: moves all extremities Psychiatric: A+Ox3, euthymic affect Results & Data ([facility]) Vital Signs (Past 12 Hours) Vital Signs Temp Pulse Resp BP Pulse Ox 10/19/19 07:45 36.9 C 81 20 116/71 93 PG Care Time/CCT Total # of Minutes Spent Total Time Spent with Patient: Total time spent is greater than 50% in coordination of care (as documented) at patient's floor/unit and/or counseling patient: Coding Level of Care Code 82809 Inpt Consult Level 4 Diagnoses Abnormal magnetic resonance cholangiopancreatography (MRCP) R93.3 Biliary obstruction K83.1
[2019-10-19] MEDS ORDERED: NovoLIN-R INSULIN PER UNIT CHARGE ONE (14:45)
[2019-10-19] MEDS ORDERED: INSULIN HUMAN REGULAR PER UNIT 4 UNITS in SYRINGE 0 ML IV STA (14:48)
--- NOTE | 2019-10-19 15:11 | Anesthesiology Progress Note ---
Date of Service October 19, 2019 Anesthesia Post Procedure Vital Signs Vital Signs: Temp Pulse Pulse Resp BP BP Pulse Ox 10/19/19 15:00 95 H 21 115/63 94 10/19/19 14:50 97.9 F 93 H 21 123/64 94 10/19/19 14:40 95 H 16 125/63 95 10/19/19 14:30 97.9 F 100 H 15 135/79 94 10/19/19 07:45 98.4 F 81 20 116/71 93 10/18/19 22:50 98.6 F 75 15 114/69 95 10/18/19 20:34 99.0 F 81 14 148/72 H 95 10/18/19 16:30 99.0 F 81 15 151/83 H 94 Pain Intensity Abdomen: Pain Intensity: 3 Transfer of Care Handoff Completed per policy Notes Mental Status: alert / awake / arousable and participated in evaluation Patient Amnestic to Procedure: Yes Nausea / Vomiting: adequately controlled Pain: adequately controlled Airway Patency, RR, SpO2: stable & adequate BP & HR: stable & adequate Hydration State: stable & adequate Anesthetic Complications: no major complications apparent and Pt Satisfied with anesthetic care
[2019-10-19] MEDS ORDERED: Nursing to Pharmacy Communication ONE (15:35)
[2019-10-19] MEDS: MoRPHine SULFATE 4 MG/ML 1 ML CARP\\VIAL IV PRN ×3 (16:36→21:28)
[2019-10-19] MEDS: lisinopriL 10 MG TAB PO SCH (21:21)
[2019-10-20] MEDS: INSULIN ASPART 100 UNITS/ML 3 ML PEN SC SCH ×6 (00:48→21:47)
[2019-10-20] MEDS: LACTATED RINGER'S 1,000 ML IV SCH ×3 (00:48→22:50)
[2019-10-20] MEDS: ACETAMINOPHEN 325 MG TAB PO PRN ×2 (03:38→21:03)
[2019-10-20] MEDS: ONDANSETRON INJ 2 MG/ML 2 ML VIAL IV PRN (05:08)
[2019-10-20 05:12] LABS: Eosinophils # (auto) 0.01 K/uL (0-0.5); Eosinophils % (auto) 0.1 %; Hematocrit (blood only) 37.1 % (37-47); Hemoglobin 11.8 g/dL (12.0-16.0); Immature Granulocytes # (auto) 0.04 K/uL (0.00-0.02); Immature Granulocytes % (auto) 0.3 %; Lymphocytes # (auto) 0.66 K/uL (1.2-3.4); Lymphocytes % (auto) 5.5 %; Mean Corpuscular Hemoglobin 29.1 pg (25-34); Mean Corpuscular Hgb Conc 31.8 g/dL (32-36); Mean Corpuscular Volume 91.6 fL (80-100); Mean Platelet Volume 9.6 fL (7.4-10.4); Monocytes # (auto) 1.24 K/uL (0.11-0.59); Monocytes % (auto) 10.3 %; Neutrophils % (auto) 83.8 %; Platelet Count 217 K/uL (130-400); RDW Standard Deviation 43.7 fL (36.4-46.3); Red Blood Count 4.05 M/uL (4.2-5.4); White Blood Count 12.05 K/uL (4.8-10.8)
[2019-10-20 05:30] LABS: Albumin Level 2.9 gm/dl (3.4-5.0); BUN Creatinine Ratio 17.9 (10-20); Bilirubin Direct 0.4 mg/dl (0-0.2); Calcium 8.2 mg/dl (8.5-10.1); Creatinine Clr Calc Pharmacy 81.5 ml/min; Est GFR (African American) 111.8; Est GFR (Non-African American) 96.5
[2019-10-20 05:32] LABS: Bilirubin,Total 2.2 mg/dl (0.2-1); Total Protein 6.3 gm/dl (6.4-8.2)
--- NOTE | 2019-10-20 10:37 | Surgery Progress Note ---
Date of Service October 20, 2019 Assessment & Plan (1) Acute cholecystitis: doing well pod 1 Tbili decreased but still elevated. will defer to GI regarding ? ERCP (2) Elevated LFTs: Subjective pt seen. pod 1. doing reasonably well. no new complaints. Physical Exam Physical Exam: alert. nad. abd: soft. expected tenderness. wounds look good. Results & Data Vital Signs (Past 12 Hours) Vital Signs Temp Pulse Pulse Resp BP BP Pulse Ox 10/20/19 10:01 93 10/20/19 07:11 37.1 C 90 18 134/71 96 10/20/19 03:35 110 H 20 95 10/20/19 03:25 37.6 C H 10/20/19 03:24 37.8 C H 111 H 16 140/76 90 10/19/19 23:05 37.3 C 99 H 16 127/73 92 PG Care Time/CCT Total # of Minutes Spent Total Time Spent with Patient: Total time spent is greater than 50% in coordination of care (as documented) at patient's floor/unit and/or counseling patient: Coding Level of Care Code None Diagnoses Acute cholecystitis K81.0 Elevated LFTs R79.89
[2019-10-20] MEDS ORDERED: Nursing to Pharmacy Communication ONE (12:58)
[2019-10-20] MEDS: lisinopriL 10 MG TAB PO SCH (21:03)
[2019-10-20] MEDS ORDERED: PHARMACY GLYCEMIC MGMT CONSULT PRN (21:31)
[2019-10-20] MEDS: MoRPHine SULFATE 2 MG/ML CARP IV PRN (23:51)
[2019-10-21] MEDS: INSULIN ASPART 100 UNITS/ML 3 ML PEN SC SCH ×5 (00:25→19:51)
[2019-10-21] MEDS: MoRPHine SULFATE 4 MG/ML 1 ML CARP\\VIAL IV PRN ×2 (01:52→03:43)
[2019-10-21] MEDS ORDERED: OPTIRAY 320 125ml IV PRN (02:52)
--- NOTE | 2019-10-21 03:43 | Surgery Progress Note ---
Date of Service October 21, 2019 Assessment & Plan (1) Tachycardia: -due to EKG findings and reported symptoms, CTS of chest performed to assess for PE: -CT scan was (-) for pneumonia, PE, or pneumothorax -pt revisited after CT and was resting in bed and did not appear to be in respiratory distress -symptoms are likely due to abdominal pain/distention inhibiting deep breathing -pt. provided with reassurance -will continue to use analgesics for pain control as above. "rough night" but feeling better now suspect passed/passing CBD stone LFT's elevated today. for ERCP by GI monitor HR...likely secondary to pain response. will consult medicine. CT for PE negative. Subjective Called by RN as pt. was tachycardic, SOB, and noted epigastric pain. STAT CXR and EKG ordered. CXR showed bibasilar atelectasis. EKG showed sinus tachycardia. Pt. noted she feels as though she needs t belch but cannot. In addition she has some epigastric pain. No N/V. She denies CP or pleurisy. No rigors or chills. Physical Exam Respiratory: normal respiratory effort; no respiratory distress and no labored breathing BS are decreased at bases Cardiovascular: Rate/Rhythm: regular rate, regular rhythm and + tachycardic Gastrointestinal (Abdomen): mild distention noted, BS are hypoactive; pain with palpation over surgical incisions Musculoskeletal: no calf tenderness Results & Data Vital Signs (Past 12 Hours) Vital Signs Temp Pulse Resp BP Pulse Ox 10/21/19 02:02 36.8 C 120 H 24 95 10/21/19 01:36 127 H 20 168/96 H 95 10/20/19 23:08 37.2 C 114 H 18 152/83 H 92 PG Care Time/CCT Total # of Minutes Spent Total Time Spent with Patient: Total time spent is greater than 50% in coordination of care (as documented) at patient's floor/unit and/or counseling patient: Coding Level of Care Code None Diagnoses Tachycardia R00.0
[2019-10-21] MEDS: MoRPHine SULFATE 2 MG/ML CARP IV PRN (04:44)
[2019-10-21 05:06] LABS: Hematocrit (blood only) 38.5 % (37-47); Hemoglobin 13.2 g/dL (12.0-16.0); Mean Corpuscular Hemoglobin 31.2 pg (25-34); Mean Corpuscular Hgb Conc 34.3 g/dL (32-36); Mean Platelet Volume 9.8 fL (7.4-10.4); Platelet Count 250 K/uL (130-400); RDW Standard Deviation 43.1 fL (36.4-46.3); Red Blood Count 4.23 M/uL (4.2-5.4); White Blood Count 10.96 K/uL (4.8-10.8)
[2019-10-21 05:33] LABS: Albumin Level 3.1 gm/dl (3.4-5.0); Calcium 8.8 mg/dl (8.5-10.1); Creatinine Clr Calc Pharmacy 76.5 ml/min; Est GFR (African American) 109.5; Est GFR (Non-African American) 94.5; Potassium 3.7 mmol/L (3.5-5.1)
[2019-10-21 05:50] LABS: Bilirubin Direct 1.2 mg/dl (0-0.2); Bilirubin,Total 3.2 mg/dl (0.2-1); Total Protein 7.1 gm/dl (6.4-8.2)
[2019-10-21] MEDS: LACTATED RINGER'S 1,000 ML IV SCH ×3 (05:52→12:04)
--- NOTE | 2019-10-21 07:35 | CT Scan Report ---
CHEST CTA for PULMONARY ARTERIES CT DOSE: 243.10 mGy.cm HISTORY: Shortness of breath. TECHNIQUE: Multiaxial CT images of the chest were performed following the intravenous administration of contrast to evaluate the pulmonary arteries. Maximal intensity projection images were also obtaine d. A dose lowering technique was utilized adhering to the principles of ALARA. COMPARISON STUDY: None. FINDINGS: Right subdiaphragmatic surgical drain is noted. Small hiatus hernia. Trace bilateral pleura l effusions. No mediastinal or hilar lymphadenopathy. No suspicious lytic or blastic osseous lesions. No pneumothorax. The central airways are patent. Small amount of consolidation and linear densities within the lung bases. This favors atelectasis. The upper lung zones are clear. Normal caliber thorac ic aorta with no evidence for dissection. The heart is normal in size. No filling defects within the pulmonary arteries to suggest pulmonary embolus. IMPRESSION: 1. No evidence for pulmonary embolus. 2. Trace bilateral pleural effusions. 3. Surgical drain within the right upper quadrant. 4. Bibasilar densities are nonspecific but favor atelectasis. A pneumonia could've a similar appearan ce but is considered less likely. ACT 112: Negative or not required by law. Electronically signed by: Devin Scott M.D. 10/21/2019 7:34 AM
--- NOTE | 2019-10-21 07:36 | XRay Report ---
XR chest 1V portable HISTORY: Shortness of breath. COMPARISON: None. FINDINGS: Cardiac silhouette is borderline enlarged. Patchy bibasilar densities and trace bilateral p leural effusions. Prior cholecystectomy. There is a right upper quadrant surgical drain. No pneumotho rax. No evidence for pulmonary edema. IMPRESSION: Trace bilateral pleural effusions and patchy bibasilar densities. These are nonspecific but favor ate lectasis. Right upper quadrant surgical drain is noted. ACT 112: Negative or not required by law. Electronically signed by: Devin Scott M.D. 10/21/2019 7:35 AM
[2019-10-21] MEDS ORDERED: LANTUS PER UNIT CHARGE SQ ONE ×2 (08:15→18:00)
[2019-10-21] MEDS ORDERED: metroNIDAZOLE 500 MG/100 ML BAG IV STA (09:45)
[2019-10-21] MEDS ORDERED: cefTRIAXone SODIUM 1,000 MG in DEXTROSE 5% 50 ML IV SCH (10:00)
--- NOTE | 2019-10-21 10:12 | Gastroenterology Progress Note ---
Date of Service October 21, 2019 Assessment & Plan (1) Abnormal magnetic resonance cholangiopancreatography (MRCP): 63 y/o female admitted with cholecystitis, s/p lap sharmaine 10/19/19, GI consulted for abnormal MRCP/possible biliary obstruction (polypoid lesion in the mid-CBD (? stone/sludge vs neoplastic such as cholangiocarcinoma vs. benign polyp), with worsening LFTs in an obstructive pattern with leukocytosis, fever, tachycardia, concerning for biliary obstruction with cholangitis. - Will plan for EUS, possible ERCP today - Keep NPO - Start ABX regimen with Rocephin 1 gm daily and Flagyl 500 mg TID - IV hydration - Analgesia PRN - Antiemetics PRN - Further rec's after procedure Thank you for allowing us to participate in the care of this patient. Please call with any acute changes, questions or concerns. Please see addendum below with additional recommendation from my supervising physician. (2) Elevated LFTs: Admission and Anticipated Discharge Date Admission Date: October 20, 2019 Supervising Physician Co-Signing Physician Notes I performed a history and physical examination of the patient today, including specifically on physical exam - soft abdomen. I have discussed the patient's management with the advanced practitioner. Please refer to the nurse practitioner's note for the documented findings and plan of care. Concern for bile leak given difficult surgery and bile colored material in the CONOR drain. EUS/ERCP today Subjective Pt seen and examined. Overnight had some abd pain, improved with medication but it does continue today. Tbili and transaminases continue to increase, tbili now 3.2; ALP now 162, with worsening tachycardia and remains febrile, with continued leukocytosis. CTA chest this AM with no evidence for PE, CXR with trace bilateral pleural effusions and patchy bibasilar densities, nonspecific but favor atelectasis. Pt denies nausea, vomiting, CP, dyspnea. Review of Systems Constitutional: + fever and + malaise Respiratory: no cough and no dyspnea Cardiovascular: no chest pain and no edema Gastrointestinal: as per Subjective / HPI Genitourinary: no dysuria and no hematuria Integumentary: no rash Psychiatric: + anxiety Endocrine: + polydipsia T2DM Physical Exam Constitutional: well developed and well nourished (sitting up in bedside chair; appears somewhat uncomfortable ) Respiratory: normal respiratory effort Cardiovascular: Rate/Rhythm: + tachycardic Gastrointestinal (Abdomen): abd is soft, slightly distended with mild-mod tenderness to the epigastrium, lap sharmaine surgical site covered with gauze; CONOR drain with small amt serosanginous drainage Skin: no rashes, warm and dry Psychiatric: Orientation: alert and oriented x 3 Mood: + anxious mood Results & Data ([facility]) Vital Signs (Past 12 Hours) Vital Signs Temp Pulse Resp BP BP Pulse Ox 10/21/19 08:30 37.7 C H 144 H 22 138/84 92 10/21/19 07:48 38.2 C H 138 H 22 166/103 H 92 10/21/19 02:02 36.8 C 120 H 24 95 10/21/19 01:36 127 H 20 168/96 H 95 10/20/19 23:08 37.2 C 114 H 18 152/83 H 92 Laboratory Results 10/21/19 10/21/19 10/21/19 Range/Units 05:48 04:44 04:44 WBC 10.96 H (4.8-10.8) K/uL RBC 4.23 (4.2-5.4) M/uL Hgb 13.2 (12.0-16.0) g/dL Hct 38.5 (37-47) % MCV 91.0 (80-100) fL MCH 31.2 (25-34) pg MCHC 34.3 (32-36) g/dL RDW Std Deviation 43.1 (36.4-46.3) fL RDW Coeff of Debra 13.0 (11.5-14.5) % Plt Count 250 (130-400) K/uL MPV 9.8 (7.4-10.4) fL Sodium 138 (136-145) mmol/L Potassium 3.7 (3.5-5.1) mmol/L Chloride 106 (98-107) mmol/L Carbon Dioxide 25 (21-32) mmol/L Anion Gap 7.0 (3-11) BUN 8 (7-18) mg/dl Creatinine 0.65 (0.6-1.2) mg/dl Est Cr Clr Drug Dosing 76.5 ml/min Est GFR ( Amer) 109.5 Est GFR (Non-Af Amer) 94.5 BUN/Creatinine Ratio 12.0 (10-20) Glucose 231 H (70-99) mg/dl POC Glucose 214 H (70-99) mg/dl Calcium 8.8 (8.5-10.1) mg/dl Total Bilirubin 3.2 H (0.2-1) mg/dl Direct Bilirubin 1.2 H D (0-0.2) mg/dl AST 185 H (15-37) U/L ALT 271 H (12-78) U/L Alkaline Phosphatase 166 H D (45-117) U/L Total Protein 7.1 (6.4-8.2) gm/dl Albumin 3.1 L (3.4-5.0) gm/dl 10/21/19 10/20/19 10/20/19 Range/Units 00:24 20:57 17:14 WBC (4.8-10.8) K/uL RBC (4.2-5.4) M/uL Hgb (12.0-16.0) g/dL Hct (37-47) % MCV (80-100) fL MCH (25-34) pg MCHC (32-36) g/dL RDW Std Deviation (36.4-46.3) fL RDW Coeff of Debra (11.5-14.5) % Plt Count (130-400) K/uL MPV (7.4-10.4) fL Sodium (136-145) mmol/L Potassium (3.5-5.1) mmol/L Chloride (98-107) mmol/L Carbon Dioxide (21-32) mmol/L Anion Gap (3-11) BUN (7-18) mg/dl Creatinine (0.6-1.2) mg/dl Est Cr Clr Drug Dosing ml/min Est GFR ( Amer) Est GFR (Non-Af Amer) BUN/Creatinine Ratio (10-20) Glucose (70-99) mg/dl POC Glucose 186 H 244 H 193 H (70-99) mg/dl Calcium (8.5-10.1) mg/dl Total Bilirubin (0.2-1) mg/dl Direct Bilirubin (0-0.2) mg/dl AST (15-37) U/L ALT (12-78) U/L Alkaline Phosphatase (45-117) U/L Total Protein (6.4-8.2) gm/dl Albumin (3.4-5.0) gm/dl 10/20/19 Range/Units 12:03 WBC (4.8-10.8) K/uL RBC (4.2-5.4) M/uL Hgb (12.0-16.0) g/dL Hct (37-47) % MCV (80-100) fL MCH (25-34) pg MCHC (32-36) g/dL RDW Std Deviation (36.4-46.3) fL RDW Coeff of Debra (11.5-14.5) % Plt Count (130-400) K/uL MPV (7.4-10.4) fL Sodium (136-145) mmol/L Potassium (3.5-5.1) mmol/L Chloride (98-107) mmol/L Carbon Dioxide (21-32) mmol/L Anion Gap (3-11) BUN (7-18) mg/dl Creatinine (0.6-1.2) mg/dl Est Cr Clr Drug Dosing ml/min Est GFR ( Amer) Est GFR (Non-Af Amer) BUN/Creatinine Ratio (10-20) Glucose (70-99) mg/dl POC Glucose 164 H (70-99) mg/dl Calcium (8.5-10.1) mg/dl Total Bilirubin (0.2-1) mg/dl Direct Bilirubin (0-0.2) mg/dl AST (15-37) U/L ALT (12-78) U/L Alkaline Phosphatase (45-117) U/L Total Protein (6.4-8.2) gm/dl Albumin (3.4-5.0) gm/dl
--- NOTE | 2019-10-21 10:35 | Anesthesiology Progress Note ---
Date of Service October 21, 2019 Anesthesia Post Procedure Vital Signs Vital Signs: Temp Pulse Resp BP BP Pulse Ox 10/21/19 08:30 37.7 C H 144 H 22 138/84 92 10/21/19 07:48 38.2 C H 138 H 22 166/103 H 92 10/21/19 02:02 36.8 C 120 H 24 95 10/21/19 01:36 127 H 20 168/96 H 95 10/20/19 23:08 37.2 C 114 H 18 152/83 H 92 10/20/19 14:59 36.9 C 98 H 18 153/78 H 95 10/20/19 11:28 37 C 90 18 129/77 91 Pain Intensity Abdomen: Pain Intensity: 5 Notes Mental Status: alert / awake / arousable Patient Amnestic to Procedure: Yes Nausea / Vomiting: adequately controlled Pain: adequately controlled Airway Patency, RR, SpO2: stable & adequate BP & HR: stable & adequate Hydration State: stable & adequate Anesthetic Complications: no major complications apparent and Pt Satisfied with anesthetic care
[2019-10-21 12:37] LABS: Basophils # (auto) 0.01 K/uL (0-0.2); Basophils % (auto) 0.1 %; Hematocrit (blood only) 35.5 % (37-47); Hemoglobin 12.1 g/dL (12.0-16.0); Immature Granulocytes # (auto) 0.02 K/uL (0.00-0.02); Immature Granulocytes % (auto) 0.2 %; Lymphocytes # (auto) 0.69 K/uL (1.2-3.4); Lymphocytes % (auto) 6.4 %; Mean Corpuscular Hemoglobin 30.6 pg (25-34); Mean Corpuscular Hgb Conc 34.1 g/dL (32-36); Mean Corpuscular Volume 89.9 fL (80-100); Mean Platelet Volume 9.5 fL (7.4-10.4); Monocytes # (auto) 0.48 K/uL (0.11-0.59); Monocytes % (auto) 4.4 %; Neutrophils # (auto) 9.66 K/uL (1.4-6.5); Neutrophils % (auto) 88.9 %; Platelet Count 243 K/uL (130-400); RDW Coefficient of Variation 12.9 % (11.5-14.5); RDW Standard Deviation 42.6 fL (36.4-46.3); Red Blood Count 3.95 M/uL (4.2-5.4); White Blood Count 10.86 K/uL (4.8-10.8)
[2019-10-21 12:54] LABS: Albumin Level 2.6 gm/dl (3.4-5.0); BUN Creatinine Ratio 15.4 (10-20); Calcium 8.7 mg/dl (8.5-10.1); Creatinine Clr Calc Pharmacy 77.7 ml/min; Est GFR (African American) 110.1; Potassium 3.6 mmol/L (3.5-5.1)
[2019-10-21 12:58] LABS: Albumin Globulin Ratio 0.7 (0.9-2); Bilirubin,Total 2.2 mg/dl (0.2-1); Globulin 3.9 gm/dl (2.5-4.0); Total Protein 6.5 gm/dl (6.4-8.2)
[2019-10-21] MEDS ORDERED: cefTRIAXone SODIUM 1,000 MG in DEXTROSE 5% 50 ML IV ONE (13:00)
[2019-10-21] MEDS: SODIUM CHLORIDE 0.9% 1000ML 1,000 ML IV SCH (13:18)
--- NOTE | 2019-10-21 14:04 | History & Physical Bridge Note ---
Date of Service October 21, 2019 History & Physical Bridge Note I have examined the patient, reviewed the History & Physical and in the interval since the performance of the History & Physical I have noted the following changes of clinical significance: no changes noted EUS/ERCP today.
--- NOTE | 2019-10-21 14:44 | XRay Report ---
XR KUB/Abdomen 1 view CLINICAL HISTORY: Abdominal distention COMPARISON STUDY: No previous studies for comparison. FINDINGS: The bowel gas pattern is nonspecific with minimally dilated small bowel loops measuring up to 35 mm. This likely represents an ileus given the apparent recent surgery. There are surgical clips in the right upper quadrant. IMPRESSION: Mildly dilated small bowel loops, statistically secondary to a postoperative ileus. ACT 112: Negative or not required by law. Electronically signed by: Keo Leslie M.D. 10/21/2019 2:42 PM
--- NOTE | 2019-10-21 14:58 | Pharmacy Report ---
Pharmacy Glycemic Short Note 2 - Date of Service October 21, 2019 - Glycemic Short BSG Results (Last 24 hours): 10/20/19 10/20/19 10/21/19 17:14 20:57 00:24 Glucose POC Glucose 193 H 244 H 186 H 10/21/19 10/21/19 10/21/19 04:44 05:48 11:47 Glucose 231 H POC Glucose 214 H 216 H 10/21/19 12:29 Glucose 215 H POC Glucose OUTPATIENT ANTIDIABETIC REGIMEN: * Januvia 50mg PO qAM * HbA1c: pending with AM labs ASSESSMENT: * Ms Lee is a 63yo diabetic, admitted with cholelithiasis, POD #2 s/p lap sharmaine * BSGs have been elevated for the past 24 hours. * Basal insulin added this morning for better glycemic control. * Patient remains NPO. * Will continue to adjust as required. PLAN FOR INPATIENT GLYCEMIC CONTROL: * Hold outpatient oral diabetes medications * Basal insulin * Lantus 10 units SQ this morning * Lantus per scale this evening (see MAR for details) * Bolus insulin * NovoLog per scale ACHS or Q6hrs while NPO * Goal Range: Low 110 mg/dL - High 140 mg/dL * Correction Factor: 30 mg/dL/unit * Nutritional / Prandial insulin per carb ratio of 1 unit per [] grams CHO consumed PLAN FOR DISCHARGE: * pending A1c
[2019-10-21] MEDS ORDERED: fentaNYL citrate 100 MCG/2 ML VIAL ONE ×2 (15:56→17:22)
[2019-10-21] MEDS ORDERED: MIDAZOLAM HCL 1 MG/ML 2ML VIAL ONE (15:56)
--- NOTE | 2019-10-21 15:57 | Anesthesiology Consultation ---
Date of Service October 21, 2019 The patient had a lap sharmaine on 10/19/19 with no anesthesia problems. She has developed significant abdominal pain and has shallow breathing due to the pain. Her HR is in the 130s with BP 160s/80s. SpO2 has been 91 to 92 on room air with RR 40. Her temperature is now 38. She has no known Covid 19 exposure. The patient was given 3 units Novolog SC by the ICU nurse due to BSG of 193. Assessment & Plan (1) Encounter for pre-operative examination: Chart Review Chart Review: Acceptable Risk for Surgery (necessary surgery) and Patient NOT seen in Pre Admission Testing Consults Requested none History Surgery Operation Date: 10/19/19 12:50 Proposed Procedures p Laparoscopic Cholecystectomy, Possible Cholangiogram - Jose Knox DO Operation Date: 10/21/19 14:30 Proposed Procedures p Endoscopic Ultrasonography Upper - Nicole Angulo MD s Endoscopic Retrograde Cholangiopancreatogram - Nicole Angulo MD Height/Weight Height: 5 ft 4 in Weight: 60.5 kg Allergies Allergy/AdvReac Type Severity Reaction Status Date / Time amoxicillin Allergy Mild Rash Verified 10/18/19 11:45 Medications Home Medications Medication Instructions Recorded Confirmed Last Taken atorvastatin 40 mg PO HS 03/20/18 10/18/19 10/16/19 ibuprofen [Advil] 200 mg PO Q6H PRN 10/18/19 10/18/19 10/17/19 13:00 200 mg lisinopril 10 mg PO HS 10/18/19 10/18/19 10/16/19 sitagliptin [Januvia] 50 mg PO QAM 10/18/19 10/18/19 10/16/19 hydrocodone-acetaminophen [[place]] 1 - 2 tab PO Q4H PRN #15 tab 10/19/19 Unknown Active Medications Generic Name Dose Route Start Last Admin Trade Name Freq PRN Reason Stop Dose Admin Acetaminophen 650 mg 10/18/19 16:45 10/20/19 21:03 Tylenol PO 11/17/19 16:44 650 mg Q6H PRN Administration MILD Pain (Scale 1,2,3) Sodium Chloride 1,000 mls @ 70 mls/hr 10/21/19 12:30 10/21/19 13:18 Nss 1000ml IV 11/20/19 12:29 150 mls/hr .[id number] ROXANA Administration Insulin Aspart 0 units 10/20/19 21:45 10/21/19 12:03 Novolog Flexpen SC 11/19/19 21:44 3 units Q6 ROXANA Administration Ioversol 125 ml 10/21/19 02:52 10/21/19 02:53 Optiray 320 125ml IV 10/25/19 02:51 76 ml ONCE PRN Administration Interaction Checking Lisinopril 10 mg 10/18/19 21:00 10/20/19 21:03 Zestril PO 11/17/19 20:59 10 mg HS ROXANA Administration Morphine Sulfate 2 mg 10/18/19 16:45 10/21/19 04:44 Morphine Sulfate IV 11/01/19 16:44 2 mg Q1H PRN Administration MILD Pain (Scale 1,2,3) Morphine Sulfate 4 mg 10/18/19 16:45 10/21/19 03:43 Morphine Sulfate IV 11/01/19 16:44 4 mg Q1H PRN Administration MODERATE Pain (Scale 4,5,6) Ondansetron HCl 4 mg 10/18/19 16:45 10/20/19 05:08 Zofran IV 11/17/19 16:44 4 mg Q4H PRN Administration Nausea And Vomiting NPO Date Last Intake of Fluids: 10/18/19 Time Last Intake of Fluids: 17:00 Last Intake of Fluids Comment: ice chips today Date Last Intake of Solids: 10/16/19 Time Last Intake of Solids: 17:00 Past Medical History Medical History (Updated 10/21/19 @ 15:59 by Devin Cui MD) Diabetes mellitus, type 2 (Chronic) Genital herpes Hyperlipidemia (Chronic) Hypertension Varicose veins of legs Past Family History Family History Sister Family history of reaction to anesthesia sister with down's syndrome "never woke up the same after hip replacement surgery" Mother Family history of diabetes mellitus Father Family history of diabetes mellitus Brother Family history of diabetes mellitus Grandfather Family history of diabetes mellitus maternal and paternal Grandmother Family history of diabetes mellitus maternal and paternal Denies family history of Ovarian cancer Breast cancer Colorectal cancer Past Surgical History Surgical History (Updated 10/21/19 @ 16:02 by Devin Cui MD) History of bilateral tubal ligation History of colonoscopy History of surgery had endovenous laser therapy 2018 to bilt legs History of tooth extraction wisdom teeth Hx laparoscopic cholecystectomy 10/19/1920 grade 1 view Mac 3 Social History Smoking Status: Never smoker Do You Dip or Chew Tobacco: No Hx Alcohol Use: Yes Alcohol type: beer, wine and hard liquor alcohol intake frequency: holidays/special occasions only Hx Substance Use: No substance use type: does not use Physical Exam Vital Signs Last Vital Signs Temp 38.0 C H 10/21/19 15:10 Pulse 136 H 10/21/19 15:10 Resp 21 10/21/19 15:10 BP 105/93 10/21/19 15:10 Pulse Ox 91 10/21/19 15:10 Testing Laboratory Results 10/21/19 12:29 10/21/19 12:29 Urine Color Yellow 10/18/19 11:45 Urine Appearance Clear (Clear) 10/18/19 11:45 Urine pH 7.0 (4.5-7.5) 10/18/19 11:45 Ur Specific [place] 1.012 (1.000-1.030) 10/18/19 11:45 Urine Protein 2+ (Negative) H 10/18/19 11:45 Urine Glucose (UA) 2+ (Negative) H 10/18/19 11:45 Urine Ketones Trace (Negative) H 10/18/19 11:45 Urine Nitrite Negative (Negative) 10/18/19 11:45 Ur Leukocyte Esterase Negative (Negative) 10/18/19 11:45 Urine WBC (Auto) 1-5 /hpf (0-5) 10/18/19 11:45 Urine RBC (Auto) 5-10 /hpf (0-4) H 10/18/19 11:45 U Hyaline Cast (Auto) 0 /lpf (0-5) 10/18/19 11:45 U Epithel Cells (Auto) 5-10 /lpf (0-5) H 10/18/19 11:45 Urine Bacteria (Auto) Negative (Negative) 10/18/19 11:45 10/21/19 10/21/19 10/21/19 16:05 11:47 05:48 POC Glucose 192 H 216 H 214 H Electrocardiogram Date: 10/21/19 Findings: + ST @ (135) anterior infarct, nonspecific chnages lateral leads Chest X-Ray Date: 10/21/19 XR chest 1V portable HISTORY: Shortness of breath. COMPARISON: None. FINDINGS: Cardiac silhouette is borderline enlarged. Patchy bibasilar densities and trace bilateral pleural effusions. Prior cholecystectomy. There is a right upper quadrant surgical drain. No pneumothorax. No evidence for pulmonary edema. IMPRESSION: Trace bilateral pleural effusions and patchy bibasilar densities. These are nonspecific but favor atelectasis. Right upper quadrant surgical drain is noted. ACT 112: Negative or not required by law. Electronically signed by: Devin Scott M.D. 10/21/2019 7:35 AM Dictated: 10/21/19 0734 Other Testing CHEST CTA for PULMONARY ARTERIES CT DOSE: 243.10 mGy.cm HISTORY: Shortness of breath. TECHNIQUE: Multiaxial CT images of the chest were performed following the intravenous administration of contrast to evaluate the pulmonary arteries. Maximal intensity projection images were also obtained. A dose lowering technique was utilized adhering to the principles of ALARA. COMPARISON STUDY: None. FINDINGS: Right subdiaphragmatic surgical drain is noted. Small hiatus hernia. Trace bilateral pleural effusions. No mediastinal or hilar lymphadenopathy. No suspicious lytic or blastic osseous lesions. No pneumothorax. The central airways are patent. Small amount of consolidation and linear densities within the lung bases. This favors atelectasis. The upper lung zones are clear. Normal caliber thoracic aorta with no evidence for dissection. The heart is normal in size. No filling defects within the pulmonary arteries to suggest pulmonary embolus. IMPRESSION: 1. No evidence for pulmonary embolus. 2. Trace bilateral pleural effusions. 3. Surgical drain within the right upper quadrant. 4. Bibasilar densities are nonspecific but favor atelectasis. A pneumonia could've a similar appearance but is considered less likely. ACT 112: Negative or not required by law. Electronically signed by: Devin Scott M.D. 10/21/2019 7:34 AM
[2019-10-21] MEDS ORDERED: PROPOFOL IV EMULSION 10 MG/ML 20 ML VIAL IV ONE (16:11)
[2019-10-21] MEDS ORDERED: LIDOCAINE HCL 2% 2 ML VIAL/AMP(20MG/ML) INFIL ONE (16:11)
[2019-10-21] MEDS ORDERED: ONDANSETRON INJ 2 MG/ML 2 ML VIAL ONE (16:11)
[2019-10-21] MEDS ORDERED: LARYING-O-JET KIT (LTA) ONE (16:11)
[2019-10-21] MEDS ORDERED: PHENYLEPHRINE HCL 10 MG/ML VIAL ONE (16:13)
[2019-10-21] MEDS ORDERED: SUCCINYLCHOLINE CHLORIDE 20 MG/ML 10 ML VIAL IV ONE (16:13)
--- NOTE | 2019-10-21 16:21 | Electrocardiogram Report ---
Test Reason : Blood Pressure : / mmHG Vent. Rate : 113 BPM Atrial Rate : 113 BPM P-R Int : 178 ms QRS Dur : 078 ms QT Int : 328 ms P-R-T Axes : 039 -19 -15 degrees QTc Int : 449 ms Sinus tachycardia Possible Left atrial enlargement Left ventricular hypertrophy Nonspecific ST and T wave abnormality Abnormal ECG When compared with ECG of 18-OCT-2019 10:47, Vent. rate has increased BY 38 BPM Nonspecific T wave abnormality now evident in Anterior leads Confirmed by Rogelio Joshi ([id number]) on 10/21/2019 4:20:58 PM Referred By: Kwasi Gallardo Confirmed By:Rogelio Joshi
[2019-10-21] MEDS ORDERED: INDOMETHACIN 50 MG SUPP PR ONE (16:24)
[2019-10-21] MEDS ORDERED: ePHEDrine sulfate 50 MG/ML AMP IV PRN (16:34)
[2019-10-21] MEDS ORDERED: ATROPINE SULFATE 0.1 MG/ML 10ML SYR IV PRN (16:34)
[2019-10-21] MEDS ORDERED: ONDANSETRON INJ 2 MG/ML 2 ML VIAL IV PRN (16:34)
[2019-10-21] MEDS ORDERED: HYDROmorphone INJ 1 MG/ML SYRINGE IV PRN (16:34)
[2019-10-21] MEDS ORDERED: LABETALOL HCL IV 5 MG/ML 20ML IV PRN (16:34)
[2019-10-21] MEDS ORDERED: PHENYLEPHRINE 100MCG/ML 5ML SYR IV PRN (16:34)
[2019-10-21] MEDS ORDERED: fentaNYL citrate 100 MCG/2 ML VIAL IV PRN (16:34)
[2019-10-21] MEDS ORDERED: ESMOLOL HCL INJ 10 MG/ML 10ML VIAL IV ONE (16:47)
[2019-10-21] MEDS ORDERED: LABETALOL HCL IV 5 MG/ML 20ML IV ONE ×2 (17:19→17:50)
--- NOTE | 2019-10-21 18:01 | Operative Report ---
Post Operative Report Pre & Post Diagnosis Operation Date: 10/19/19 12:50 Pre-Op Diagnosis: CHOLELITHIASIS Post-Op Diagnosis: CHOLELITHIASIS Operation Date: 10/21/19 14:30 Pre-Op Diagnosis: jaundice Post-Op Diagnosis: jaundice and hiatal hernia I identified the patient and participated in the time-out.: Yes Procedure Operation Date: 10/19/19 12:50 Actual Procedures p Laparoscopic Cholecystectomy (Not Applicable) - Jose Knox DO Operation Date: 10/21/19 14:30 Actual Procedures p Upper Gastrointestional endoscopy,Endoscopic Ultrasonography Upper(Not Applicable) - Nicole Angulo MD s Endoscopic Retrograde Cholangiopancreatogram, sphincterotomy and placement of biliary stent (Not Applicable) - Nicole Angulo MD Surgeon Nicole Angulo MD Caster Operator leslie Sandoval Estimated Blood Loss 25 Findings See Below (Bile leak from the cystic duct, CBD stone removed.) Specimens None Description of Procedure EUS/ERCP I attest to the content of the Intraoperative Record and any orders documented therein. Any exceptions are noted below.
--- NOTE | 2019-10-21 18:24 | Hospitalist Consultation ---
Date of Consultation October 21, 2019 Assessment & Plan (1) Sepsis: Patient appears to be in sepsis. Patient is tachycardic and has fevers. Patient is awaiting ERCP to remove possible stone. LFTs and procal is worse today. Cultures obtained but these were after antibiotics were given. Patient is placed on antibiotics, ceftriaxone 2gr and Metronidazol. will transfer patient to [facility]. will increase fluids and reorder lab tests. HR is likely reactive and will not improve until primary problem is taken care of. (2) Tachycardia: as stated above. reactive. (3) Elevated LFTs: likely secondary to biliary obstruction. awaiting EUS and ERCP. (4) Biliary obstruction: as stated above (5) Acute cholecystitis: S/P cholecystectomy (6) Diabetes mellitus, type 2: On insulin. BS appears controled (7) Hyperlipidemia: atrovastatin is on hold for now. DVT pro:as per primary team. History of Present Illness Reason for Consultation: Tachycardia Attending Physician: Jose Knox DO History of Present Illness 63 yo female is hospitalized for cholangitis. Patient had cholecystectomy over the weekend. Today patient is having tachycardia. Patient is scheduled for ERCP today. Patient reports actually feeling better this morning. Patient states she was having abdominal pain in the RUQ overnight and subjective fevers. But this has improved this morning. Patient denies any nausea, vomting diarrhea. Patient reports no bowel movements today. Allergies Allergy/AdvReac Type Severity Reaction Status Date / Time amoxicillin Allergy Mild Rash Verified 10/18/19 11:45 Home Medications Home Medications Medication Instructions Recorded Confirmed Type atorvastatin 40 mg PO HS 03/20/18 10/18/19 History ibuprofen [Advil] 200 mg PO Q6H PRN 10/18/19 10/18/19 History lisinopril 10 mg PO HS 10/18/19 10/18/19 History sitagliptin [Januvia] 50 mg PO QAM 10/18/19 10/18/19 History hydrocodone-acetaminophen [[place]] 1 - 2 tab PO Q4H PRN #15 tab 10/19/19 Rx Patient History Medical History (Updated 10/22/19 @ 09:14 by Ariel Ivy) Diabetes mellitus, type 2 (Chronic) Genital herpes Hyperlipidemia (Chronic) Hypertension Varicose veins of legs Surgical History History of bilateral tubal ligation History of colonoscopy History of surgery had endovenous laser therapy 2018 to bilt legs History of tooth extraction wisdom teeth Hx laparoscopic cholecystectomy 10/19/1920 grade 1 view Mac 3 Family History Sister Family history of reaction to anesthesia sister with down's syndrome "never woke up the same after hip replacement surgery" Mother Family history of diabetes mellitus Father Family history of diabetes mellitus Brother Family history of diabetes mellitus Grandfather Family history of diabetes mellitus maternal and paternal Grandmother Family history of diabetes mellitus maternal and paternal Denies family history of Ovarian cancer Breast cancer Colorectal cancer Social History Preferred Language: Uzbek Communication Ability: Effective Certified Credit Counselor Required: No Beliefs That Will Affect Care: None Current Living Situation: Family Current Living Situation Comment: Lives with and step son Other Information That Helps Us Care for You: No Feels Safe at Home: Yes Safety Concerns: Feels Safe At This Time Smoking Status: Never smoker Do You Dip or Chew Tobacco: No ; Second Hand Exposure: Yes ( smokes) ; Hx Alcohol Use: Yes Alcohol type: beer, wine and hard liquor Hx Substance Use: No Review of Systems Constitutional: + fever and + body aches; no sweats and no malaise Eyes: no diplopia and no decreased night vision Ear, Nose, Mouth, Throat: no ear pain, no ear trauma and no hyperacusis Respiratory: no cough and no change in sputum Cardiovascular: no chest pain with activity and no dyspnea at rest Gastrointestinal: + bloating; no nausea Genitourinary: no urinary frequency Integumentary: no rash and no non-healing lesions Neurologic: no falls Psychiatric: no hopelessness Endocrine: no polydipsia Physical Exam Constitutional: WD/WN, vitals as above well developed Eyes: PERRL, conjunctivae normal, anicteric sclerae Neck: trachea midline, no thyromegaly Respiratory: normal respiratory effort, lungs clear to auscultation Cardiovascular: Rate/Rhythm: + tachycardic Heart Sounds: normal S1 and normal S2 Gastrointestinal (Abdomen): normal bowel sounds, soft, nontender, no hepatosp lenomegaly Musculoskeletal: no cyanosis or clubbing, extremities motor strength 5/5 Neurologic: PERRL, EOMI, accommodation nl, no face palsy, no dysarthria Psychiatric: A+Ox3, euthymic affect Results & Data Results & Data ([facility]) Vital Signs (Past 12 Hours) Vital Signs Temp Pulse Pulse Pulse Resp BP BP 10/21/19 15:10 38.0 C H 136 H 21 10/21/19 15:03 37.8 C H 133 H 40 H 105/93 10/21/19 13:44 134 H 35 H 153/85 H 10/21/19 12:44 140 H 38 H 154/85 H 10/21/19 11:44 36.7 C 135 H 41 H 143/80 H 10/21/19 11:16 137 H 10/21/19 08:30 37.7 C H 144 H 22 10/21/19 07:48 38.2 C H 138 H 22 166/103 H BP Pulse Ox 10/21/19 15:10 105/93 91 10/21/19 15:03 92 10/21/19 13:44 10/21/19 12:44 10/21/19 11:44 92 10/21/19 11:16 10/21/19 08:30 138/84 92 10/21/19 07:48 92 PG Care Time/CCT Total # of Minutes Spent Total Time Spent with Patient: Total time spent is greater than 50% in coordination of care (as documented) at patient's floor/unit and/or counseling patient: Coding Level of Care Code 36540 Inpt Consult Level 4 Diagnoses Sepsis A41.9 Sepsis acute organ dysfunction status: without acute organ dysfunction Sepsis type: sepsis due to unspecified organism Tachycardia R00.0 Elevated LFTs R79.89 Biliary obstruction K83.1 Acute cholecystitis K81.0 Diabetes mellitus, type 2 E11.9 Hyperlipidemia E78.5 (1) Sepsis Sepsis acute organ dysfunction status: without acute organ dysfunction Sepsis type: sepsis due to unspecified organism Qualified Code(s): A41.9 - Sepsis, unspecified organism
--- NOTE | 2019-10-21 18:31 | GI REPORT ---
Patient Name: Luma Lee Procedure Date: 10/21/2019 4:39 PM Date of : 1955 Admit Type: Inpatient Age: 63 Gender: Female Attending MD: Nicole Angulo MD Procedure: Upper GI endoscopy Providers: Nicole Angulo MD Referring MD: Jose Baker Indications: Epigastric abdominal pain Medicines: General Anesthesia Complications: No immediate complications. Estimated Blood Loss: Estimated blood loss: none. Procedure: Pre-Anesthesia Assessment: - Prior to the procedure, a History and Physical was performed, and patient medications, allergies and sensitivities were reviewed. The patient's tolerance of previous anesthesia was reviewed. - The risks and benefits of the procedure and the sedation options and risks were discussed with the patient. All questions were answered and informed consent was obtained. - Patient identification and proposed procedure were verified prior to the procedure by the physician and the nurse. The procedure was verified in the procedure room. - Pre-procedure physical examination revealed no contraindications to sedation. After obtaining informed consent, the endoscope was passed under direct vision. Throughout the procedure, the patient's blood pressure, pulse, and oxygen saturations were monitored continuously. The Endoscope was introduced through the mouth, and advanced to the second part of duodenum. The upper GI endoscopy was accomplished without difficulty. The patient tolerated the procedure well. Findings: A 3 cm hiatal hernia was found. The proximal extent of the gastric folds (end of tubular esophagus) was 37 cm from the incisors. The hiatal narrowing was 40 cm from the incisors. The examined esophagus was normal. The entire examined stomach was normal. Diffuse moderate inflammation characterized by congestion (edema) and erythema was found in the duodenal bulb and in the second portion of the duodenum. Impression: - 3 cm hiatal hernia. - Normal esophagus. - Normal stomach. - Duodenitis. Recommendation: - Perform an upper endoscopic ultrasound (UEUS) today. Nicole Angulo MD 10/21/2019 6:31:10 PM This report has been signed electronically. Note Initiated On: 10/21/2019 4:39 PM Number of Addenda: 0 I attest to the content of the Intraoperative Record and orders documented therein, exceptions below {[id number]}
--- NOTE | 2019-10-21 18:33 | Fluoroscopy Report ---
[place] ERCP biliary ductal CLINICAL HISTORY: EXPLORE DUCTS COMPARISON STUDY: MRCP dated 10/18/2019 FLUOROSCOPY TIME: 1 minute and 23 seconds.. NUMBER OF FLUOROSCOPIC IMAGES: 19 FINDINGS: An ERCP was performed. The common bile duct was cannulated. A sphincterotomy appears to hav e been performed. The duct was swept with a balloon catheter. There is filling of the cystic duct. Ex travasation of contrast is visualized indicative of a cystic duct remnant leak. IMPRESSION: 1. Cystic duct remnant leak 2. A common bile duct stent was placed. ACT 112: Negative or not required by law. Electronically signed by: Keo Leslie M.D. 10/21/2019 6:31 PM
--- NOTE | 2019-10-21 18:47 | GI REPORT ---
Patient Name: Luma Lee Procedure Date: 10/21/2019 4:48 PM Date of : 1955 Admit Type: Inpatient Age: 63 Gender: Female Attending MD: Nicole Angulo MD Procedure: Upper EUS Providers: Nicole Angulo MD Referring MD: Kwasi Gallardo, Ariel Ivy M.d., Jose Knox Indications: Abnormal MRCP, Elevated liver enzymes, Suspected choledocholithiasis Medicines: General Anesthesia Complications: No immediate complications. Estimated Blood Loss: Estimated blood loss: none. Procedure: Pre-Anesthesia Assessment: - Prior to the procedure, a History and Physical was performed, and patient medications, allergies and sensitivities were reviewed. The patient's tolerance of previous anesthesia was reviewed. - The risks and benefits of the procedure and the sedation options and risks were discussed with the patient. All questions were answered and informed consent was obtained. - Patient identification and proposed procedure were verified prior to the procedure by the physician and the nurse. The procedure was verified in the procedure room. - Pre-procedure physical examination revealed no contraindications to sedation. After obtaining informed consent, the endoscope was passed under direct vision. Throughout the procedure, the patient's blood pressure, pulse, and oxygen saturations were monitored continuously. The Endosonoscope was introduced through the mouth, and advanced to the second part of duodenum. The upper EUS was accomplished without difficulty. The patient tolerated the procedure well. Findings: ENDOSONOGRAPHIC FINDING: : There was no sign of significant endosonographic abnormality in the ampulla. No masses were identified. There is likely a periampullary diverticulum causing multiple shadowing artifacts. There was dilation in the common bile duct which measured up to 8 mm. A small amount of hyperechoic material consistent with sludge was visualized endosonographically in the common bile duct. Evidence of a previous cholecystectomy was identified endosonographically. There was no sign of significant endosonographic abnormality in the visualized portion of the liver. The pancreatic duct had a borderline dilated endosonographic appearance in the pancreatic head area. The pancreatic duct measured up to 2.5 mm in diameter near the ampulla, then 3.5 mm in the head and down to 1.5 mm in the body and tail. There was no sign of significant endosonographic abnormality in the visualized portion of the left adrenal gland. There was no sign of significant endosonographic abnormality involving the celiac trunk. A moderate amount of fluid, visualized as an anechoic heterogenous structure, was found in the perihepatic peritoneal space. Impression: - There was no sign of significant pathology in the ampulla. 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 - There was dilation in the common bile duct which measured up to 8 mm. - Hyperechoic material consistent with sludge was visualized endosonographically in the common bile duct. - Evidence of a cholecystectomy. - There was no evidence of significant pathology in the visualized portion of the liver. - The pancreatic duct had a borderline dilated endosonographic appearance in the pancreatic head up to 3.5 mm in diameter. - Endosonographic images of the left adrenal gland were unremarkable. - The celiac trunk was endosonographically normal. - Ascites was found on endosonographic examination of the peritoneal cavity. Recommendation: - Perform an ERCP today. Nicole Angulo MD 10/21/2019 6:46:23 PM This report has been signed electronically. Note Initiated On: 10/21/2019 4:48 PM Number of Addenda: 0 I attest to the content of the Intraoperative Record and orders documented therein, exceptions below {[id number]}
--- NOTE | 2019-10-21 19:02 | GI REPORT ---
Patient Name: Luma Lee Procedure Date: 10/21/2019 5:13 PM Date of : 1955 Admit Type: Inpatient Age: 63 Gender: Female Attending MD: Nicole Angulo MD Procedure: ERCP Providers: Nicole Angulo MD Referring MD: Kwasi Gallardo, Jose Knox, Ariel Ivy M.d. Indications: Abnormal MRCP, For therapy of bile duct stone(s), Jaundice, Elevated liver enzymes Medicines: General Anesthesia Complications: No immediate complications. Estimated Blood Loss: Estimated blood loss: none. Procedure: Pre-Anesthesia Assessment: - Prior to the procedure, a History and Physical was performed, and patient medications, allergies and sensitivities were reviewed. The patient's tolerance of previous anesthesia was reviewed. - The risks and benefits of the procedure and the sedation options and risks were discussed with the patient. All questions were answered and informed consent was obtained. - Patient identification and proposed procedure were verified prior to the procedure by the physician and the nurse. The procedure was verified in the procedure room. - Pre-procedure physical examination revealed no contraindications to sedation. The abdomen was distended but soft. After obtaining informed consent, the scope was passed under direct vision. Throughout the procedure, the patient's blood pressure, pulse, and oxygen saturations were monitored continuously. The Scope was introduced through the mouth, and advanced to the duodenum and used to inject contrast into the bile duct. The patient tolerated the procedure well. The ERCP was somewhat difficult due to challenging cannulation because of abnormal anatomy and duodenal edema. Findings: A digital imaging technician film of the abdomen was obtained. Surgical clips, consistent with a previous cholecystectomy, were seen in the area of the right upper quadrant of the abdomen. A digital imaging technician film of the abdomen was obtained. One percutaneous drain ending in the Right upper quadrant was seen. The esophagus was successfully intubated under direct vision. The scope was advanced to a normal major papilla in the descending duodenum without detailed examination of the pharynx, larynx and associated structures, and upper GI tract. The upper GI tract was grossly normal. The duodenal wall was edematous and hence the papillary orifice could not be initially found. After careful exploration, there is a 3 cm diverticulum but the opening is totally closed due to duodenal wall edema. The scope was gently maneuvered inside the diverticulum and the papillary orifice was visualized inside the diverticulum The major papilla was edematous. A 0.035 inch straight standard wire was passed into the biliary tree. The Fusion OMNI sphincterotome was passed over the guidewire and the bile duct was then deeply cannulated. Contrast was injected. I personally interpreted the bile duct images. Ductal flow of contrast was adequate. Image quality was adequate. Contrast extended to the main bile duct. The main bile duct was mildly dilated. The largest diameter was 8 mm. Extravasation of contrast originating from the cystic duct was observed. Biliary sphincterotomy was made with a monofilament traction (standard) sphincterotome using ERBE electrocautery. There was no post-sphincterotomy bleeding. The biliary tree was swept with an 11.5 mm balloon starting at the bifurcation. Sludge and black debris was swept from the duct. One 8 mm by 8 cm covered metal biliary stent was placed into the common bile duct. Bile flowed through the stent. The stent was in good position. Indomethacin 100 mg was given via suppository to decrease the risk of post-ERCP pancreatitis (PEP). PD was not cannulated. The abdomen was distended prior to and after the ERCP, on Fluoroscopy there is significant dilation of small bowel loops, likely post surgical ileus hence an NG tube was placed and position confirmed by fluoroscopy in the stomach. Impression: - A bile leak from the cystic duct remnant was found. - One covered metal biliary stent was placed into the common bile duct. Recommendation: - [facility]. - Avoid aspirin and nonsteroidal anti-inflammatory medicines for 5 days. - Repeat ERCP in 8 weeks to remove stent. - Continue IV ABx. - Monitor LFTs and drain output. Nicole Angulo MD 10/21/2019 7:02:21 PM This report has been signed electronically. Note Initiated On: 10/21/2019 5:13 PM Number of Addenda: 0 I attest to the content of the Intraoperative Record and orders documented therein, exceptions below {[id number]}
--- NOTE | 2019-10-21 19:10 | Anesthesiology Progress Note ---
Date of Service October 21, 2019 Anesthesia Post Procedure Vital Signs Vital Signs: Temp Pulse Pulse Pulse Resp BP BP 10/21/19 18:53 36.7 C 94 H 36 H 107/94 10/21/19 15:10 38.0 C H 136 H 21 10/21/19 15:03 37.8 C H 133 H 40 H 105/93 10/21/19 13:44 134 H 35 H 153/85 H 10/21/19 12:44 140 H 38 H 154/85 H 10/21/19 11:44 36.7 C 135 H 41 H 143/80 H 10/21/19 11:16 137 H 10/21/19 08:30 37.7 C H 144 H 22 10/21/19 07:48 38.2 C H 138 H 22 166/103 H 10/21/19 02:02 36.8 C 120 H 24 10/21/19 01:36 127 H 20 168/96 H 10/20/19 23:08 37.2 C 114 H 18 152/83 H BP Pulse Ox 10/21/19 18:53 91 10/21/19 15:10 105/93 91 10/21/19 15:03 92 10/21/19 13:44 10/21/19 12:44 10/21/19 11:44 92 10/21/19 11:16 10/21/19 08:30 138/84 92 10/21/19 07:48 92 10/21/19 02:02 95 10/21/19 01:36 95 10/20/19 23:08 92 Pain Intensity Abdomen: Pain Intensity: 2 Transfer of Care Handoff Completed per policy Notes Mental Status: alert / awake / arousable Patient Amnestic to Procedure: Yes Nausea / Vomiting: adequately controlled Pain: adequately controlled Airway Patency, RR, SpO2: stable & adequate BP & HR: stable & adequate Hydration State: stable & adequate Anesthetic Complications: no major complications apparent and Pt Satisfied with anesthetic care Notes: The patient is awake and feels better than prior to surgery. Her HR has decreased from the 130s to the 90s. The patient is being recovered in the ICU. Report was given to Ivan in the ICU.
[2019-10-21] MEDS: metroNIDAZOLE 500 MG/100 ML BAG IV SCH (19:24)
[2019-10-21] MEDS: lisinopriL 10 MG TAB PO SCH (20:15)
[2019-10-22] MEDS: INSULIN ASPART 100 UNITS/ML 3 ML PEN SC SCH ×4 (00:19→18:06)
[2019-10-22] MEDS: metroNIDAZOLE 500 MG/100 ML BAG IV SCH ×3 (01:41→18:07)
[2019-10-22 04:30] LABS: Hematocrit (blood only) 30.9 % (37-47); Hemoglobin 10.1 g/dL (12.0-16.0); Mean Corpuscular Hemoglobin 29.5 pg (25-34); Mean Corpuscular Hgb Conc 32.7 g/dL (32-36); Mean Corpuscular Volume 90.4 fL (80-100); Mean Platelet Volume 9.1 fL (7.4-10.4); Platelet Count 216 K/uL (130-400); RDW Coefficient of Variation 13.3 % (11.5-14.5); RDW Standard Deviation 43.9 fL (36.4-46.3); Red Blood Count 3.42 M/uL (4.2-5.4); White Blood Count 8.96 K/uL (4.8-10.8)
[2019-10-22 05:15] LABS: BUN Creatinine Ratio 23.2 (10-20); Bilirubin Direct 0.5 mg/dl (0-0.2); Bilirubin,Total 1.5 mg/dl (0.2-1); Calcium 7.7 mg/dl (8.5-10.1); Creatinine Clr Calc Pharmacy 77.7 ml/min; Est GFR (African American) 110.1; Potassium 3.3 mmol/L (3.5-5.1); Total Protein 5.4 gm/dl (6.4-8.2)
[2019-10-22] MEDS: SODIUM CHLORIDE 0.9% 1000ML 1,000 ML IV SCH (06:28)
[2019-10-22 06:55] LABS: Estimated Average Glucose 186 mg/dl; Hemoglobin A1C 8.1 % (4.5-5.6)
[2019-10-22] MEDS ORDERED: LANTUS PER UNIT CHARGE SQ ONE (07:30)
--- NOTE | 2019-10-22 08:17 | Surgery Progress Note ---
Date of Service October 22, 2019 Assessment & Plan (1) Biliary obstruction: POD 3 lap sharmaine, POD 1 ERCP keep drain consider clamping/removing NG if increasing flatus added K+ to NSS as above. feeling better today. LFT's improved. will check KUB...if bowel loops look good will pull NGT and start clears. CONOR with scant brownish/serous fluid. Subjective cc NGT, scant flatus this AM Physical Exam Gastrointestinal (Abdomen): Inspection/Auscultation: + abdomen distended Percussion/Palpation: abdomen soft NG 550 overnight CONOR 30 cc overnight (230 cc yesterday) bile-tinged Results & Data Vital Signs (Past 12 Hours) Vital Signs Temp Pulse Pulse Pulse Resp BP BP 10/22/19 08:00 36.8 C 112 H 25 H 10/22/19 07:24 117 H 10/22/19 03:19 36.5 C 95 H 16 106/60 10/21/19 23:52 36.7 C 95 H 16 107/63 10/21/19 23:09 95 H 27 H 100/54 L 10/21/19 22:00 96 H 27 H 117/69 10/21/19 21:10 99 H 22 131/64 10/21/19 20:40 102 H 23 127/72 10/21/19 20:30 100 H 39 H 10/21/19 20:25 98 H 36 H 129/79 10/21/19 20:15 98 H 37 H BP Pulse Ox 10/22/19 08:00 122/66 98 10/22/19 07:24 10/22/19 03:19 95 10/21/19 23:52 95 10/21/19 23:09 95 10/21/19 22:00 96 10/21/19 21:10 93 10/21/19 20:40 90 10/21/19 20:30 93 10/21/19 20:25 94 10/21/19 20:15 95 PG Care Time/CCT Total # of Minutes Spent Total Time Spent with Patient: Total time spent is greater than 50% in coordination of care (as documented) at patient's floor/unit and/or counseling patient: Coding Level of Care Code None Diagnoses Biliary obstruction K83.1
[2019-10-22] MEDS: NSS + 20MEQ KCL 20 MEQ/1,000 ML BAG IV SCH ×2 (08:27→18:07)
--- NOTE | 2019-10-22 10:56 | Gastroenterology Progress Note ---
Date of Service October 22, 2019 Assessment & Plan (1) Bile leak, postoperative: 63 y/o female admitted with cholecystitis, s/p lap sharmaine 10/19/19 and GI consulted for abnormal MCRP/possible biliary obstruction with worsening LFTs and fever, tachycardia concerning for cholangitis. ERCP yesterday demonstrated bile leak from the cystic duct remnant, with one covered metal biliary stent was placed into the CBD. This AM pt reports feeling much better; LFTs trending down. Leukocytosis and fever have resolved; remains tachycardic. She has NGT in place for post-op ileus. Abd soft, mildly distended. - Continue IV ABX - Avoid NSAIDs, ASA for 5 days - Trend LFTs - Repeat ERCP 8 week to remove stent - Out of bed as tolerated - Analgesia, antiemetics PRN - Defer diet and mgmt of NGT to surgical service Thank you for allowing us to participate in the care of this patient. Please call with any acute changes, questions or concerns. Please see addendum below with additional recommendation from my supervising physician. Admission and Anticipated Discharge Date Admission Date: October 20, 2019 Supervising Physician Co-Signing Physician Notes I performed a history and physical examination of the patient today, including specifically on physical exam - soft abdomen. I have discussed the patient's management with the advanced practitioner. Please refer to the nurse practitioner's note for the documented findings and plan of care. Clamp her NG and trial of clear liquids as she is passing flatus and feels the urge for a BM now. Subjective Pt seen and examined. Was moved to the ICU yesterday. Pt underwent EGD/EUS/ERCP yesterday demonstrating dilated CBD at 8 mm with sludge and bile leak from the cystic duct remnant was found, with one covered metal biliary stent was placed into the CBD. This AM LFTs, bilirubin improved; leukocytosis and fever have resolved. Tbili now 1.5, AST now normal, ALT 111, WBC 8.9, HGB 10.1. Pt reports feeling "so much better" this AM; no further epigastric pain; but still has some post-op incisional pain from her lap sharmaine. Denies n/v, no stoo ls, no melena, hematochezia, fever, chest pain, dyspnea. Remains tachycardic. Pt is passing flatus. Yesterday pt had some abdominal distention and KUB indicated post-op ileus and NGT was placed; canister this AM was filled with dark green/brown fluid overnight; new canister was just changed and hooked to LIS; no current active drainage. Review of Systems Constitutional: no fever and no chills Eyes: no icterus Respiratory: no cough and no dyspnea Cardiovascular: no chest pain, no dyspnea and no edema Gastrointestinal: as per Subjective / HPI Genitourinary: no dysuria Physical Exam Constitutional: WD/WN, vitals as above Eyes: + anicteric sclerae Respiratory: normal respiratory effort Auscultation: lungs clear to auscultation bilaterally Cardiovascular: Rate/Rhythm: regular rhythm and + tachycardic Gastrointestinal (Abdomen): Percussion/Palpation: abdomen soft hypoactive BS, mildly distended, mild RUQ tenderness overnight incision sites Skin: no rashes, warm and dry Psychiatric: A+Ox3, euthymic affect Results & Data ([facility]) Vital Signs (Past 12 Hours) Vital Signs Temp Pulse Pulse Pulse Resp BP BP 10/22/19 08:00 36.8 C 112 H 25 H 10/22/19 07:24 117 H 10/22/19 03:19 36.5 C 95 H 16 106/60 10/21/19 23:52 36.7 C 95 H 16 107/63 10/21/19 23:09 95 H 27 H 100/54 L BP Pulse Ox 10/22/19 08:00 122/66 98 10/22/19 07:24 10/22/19 03:19 95 10/21/19 23:52 95 10/21/19 23:09 95 Laboratory Results 10/22/19 10/22/19 10/22/19 Range/Units 05:56 04:19 04:19 WBC (4.8-10.8) K/uL RBC (4.2-5.4) M/uL Hgb (12.0-16.0) g/dL Hct (37-47) % MCV (80-100) fL MCH (25-34) pg MCHC (32-36) g/dL RDW Std Deviation (36.4-46.3) fL RDW Coeff of Debra (11.5-14.5) % Plt Count (130-400) K/uL MPV (7.4-10.4) fL Immature Gran % (Auto) % Neut % (Auto) % Lymph % (Auto) % Alexander % (Auto) % Eos % (Auto) % Baso % (Auto) % Immature Gran # (Auto) (0.00-0.02) K/uL Neut # (Auto) (1.4-6.5) K/uL Lymph # (Auto) (1.2-3.4) K/uL Alexander # (Auto) (0.11-0.59) K/uL Eos # (Auto) (0-0.5) K/uL Baso # (Auto) (0-0.2) K/uL Sodium 142 (136-145) mmol/L Potassium 3.3 L (3.5-5.1) mmol/L Chloride 111 H (98-107) mmol/L Carbon Dioxide 25 (21-32) mmol/L Anion Gap 6.0 (3-11) BUN 15 (7-18) mg/dl Creatinine 0.64 (0.6-1.2) mg/dl Est Cr Clr Drug Dosing 77.7 ml/min Est GFR ( Amer) 110.1 Est GFR (Non-Af Amer) 95.0 BUN/Creatinine Ratio 23.2 H (10-20) Glucose 171 H (70-99) mg/dl POC Glucose 151 H (70-99) mg/dl Estimat Average Glucose 186 mg/dl Hemoglobin A1c 8.1 H (4.5-5.6) % Lactate (0.4-2.0) mmol/L Calcium 7.7 L (8.5-10.1) mg/dl Total Bilirubin 1.5 H (0.2-1) mg/dl Direct Bilirubin 0.5 H D (0-0.2) mg/dl AST 32 (15-37) U/L ALT 111 H (12-78) U/L Alkaline Phosphatase 89 (45-117) U/L Total Protein 5.4 L (6.4-8.2) gm/dl Albumin 2.0 L (3.4-5.0) gm/dl Globulin (2.5-4.0) gm/dl Albumin/Globulin Ratio (0.9-2) Procalcitonin (0-0.5) ng/ml 06/02/20 06/01/20 06/01/20 Range/Units 04:19 23:50 19:36 WBC 8.96 (4.8-10.8) K/uL RBC 3.42 L (4.2-5.4) M/uL Hgb 10.1 L (12.0-16.0) g/dL Hct 30.9 L (37-47) % MCV 90.4 (80-100) fL MCH 29.5 (25-34) pg MCHC 32.7 (32-36) g/dL RDW Std Deviation 43.9 (36.4-46.3) fL RDW Coeff of Debra 13.3 (11.5-14.5) % Plt Count 216 (130-400) K/uL MPV 9.1 (7.4-10.4) fL Immature Gran % (Auto) % Neut % (Auto) % Lymph % (Auto) % Alexander % (Auto) % Eos % (Auto) % Baso % (Auto) % Immature Gran # (Auto) (0.00-0.02) K/uL Neut # (Auto) (1.4-6.5) K/uL Lymph # (Auto) (1.2-3.4) K/uL Alexander # (Auto) (0.11-0.59) K/uL Eos # (Auto) (0-0.5) K/uL Baso # (Auto) (0-0.2) K/uL Sodium (136-145) mmol/L Potassium (3.5-5.1) mmol/L Chloride (98-107) mmol/L Carbon Dioxide (21-32) mmol/L Anion Gap (3-11) BUN (7-18) mg/dl Creatinine (0.6-1.2) mg/dl Est Cr Clr Drug Dosing ml/min Est GFR ( Amer) Est GFR (Non-Af Amer) BUN/Creatinine Ratio (10-20) Glucose (70-99) mg/dl POC Glucose 198 H 165 H (70-99) mg/dl Estimat Average Glucose mg/dl Hemoglobin A1c (4.5-5.6) % Lactate (0.4-2.0) mmol/L Calcium (8.5-10.1) mg/dl Total Bilirubin (0.2-1) mg/dl Direct Bilirubin (0-0.2) mg/dl AST (15-37) U/L ALT (12-78) U/L Alkaline Phosphatase (45-117) U/L Total Protein (6.4-8.2) gm/dl Albumin (3.4-5.0) gm/dl Globulin (2.5-4.0) gm/dl Albumin/Globulin Ratio (0.9-2) Procalcitonin (0-0.5) ng/ml 10/21/19 10/21/19 10/21/19 Range/Units 16:05 12:29 12:29 WBC (4.8-10.8) K/uL RBC (4.2-5.4) M/uL Hgb (12.0-16.0) g/dL Hct (37-47) % MCV (80-100) fL MCH (25-34) pg MCHC (32-36) g/dL RDW Std Deviation (36.4-46.3) fL RDW Coeff of Debra (11.5-14.5) % Plt Count (130-400) K/uL MPV (7.4-10.4) fL Immature Gran % (Auto) % Neut % (Auto) % Lymph % (Auto) % Alexander % (Auto) % Eos % (Auto) % Baso % (Auto) % Immature Gran # (Auto) (0.00-0.02) K/uL Neut # (Auto) (1.4-6.5) K/uL Lymph # (Auto) (1.2-3.4) K/uL Alexander # (Auto) (0.11-0.59) K/uL Eos # (Auto) (0-0.5) K/uL Baso # (Auto) (0-0.2) K/uL Sodium (136-145) mmol/L Potassium (3.5-5.1) mmol/L Chloride (98-107) mmol/L Carbon Dioxide (21-32) mmol/L Anion Gap (3-11) BUN (7-18) mg/dl Creatinine (0.6-1.2) mg/dl Est Cr Clr Drug Dosing ml/min Est GFR ( Amer) Est GFR (Non-Af Amer) BUN/Creatinine Ratio (10-20) Glucose (70-99) mg/dl POC Glucose 192 H (70-99) mg/dl Estimat Average Glucose mg/dl Hemoglobin A1c (4.5-5.6) % Lactate 1.3 (0.4-2.0) mmol/L Calcium (8.5-10.1) mg/dl Total Bilirubin (0.2-1) mg/dl Direct Bilirubin (0-0.2) mg/dl AST (15-37) U/L ALT (12-78) U/L Alkaline Phosphatase (45-117) U/L Total Protein (6.4-8.2) gm/dl Albumin (3.4-5.0) gm/dl Globulin (2.5-4.0) gm/dl Albumin/Globulin Ratio (0.9-2) Procalcitonin 3.06 H (0-0.5) ng/ml 10/21/19 10/21/19 10/21/19 Range/Units 12:29 12:29 11:47 WBC 10.86 H (4.8-10.8) K/uL RBC 3.95 L (4.2-5.4) M/uL Hgb 12.1 (12.0-16.0) g/dL Hct 35.5 L (37-47) % MCV 89.9 (80-100) fL MCH 30.6 (25-34) pg MCHC 34.1 (32-36) g/dL RDW Std Deviation 42.6 (36.4-46.3) fL RDW Coeff of Debra 12.9 (11.5-14.5) % Plt Count 243 (130-400) K/uL MPV 9.5 (7.4-10.4) fL Immature Gran % (Auto) 0.2 % Neut % (Auto) 88.9 % Lymph % (Auto) 6.4 % Alexander % (Auto) 4.4 % Eos % (Auto) 0.0 % Baso % (Auto) 0.1 % Immature Gran # (Auto) 0.02 (0.00-0.02) K/uL Neut # (Auto) 9.66 H (1.4-6.5) K/uL Lymph # (Auto) 0.69 L (1.2-3.4) K/uL Alexander # (Auto) 0.48 (0.11-0.59) K/uL Eos # (Auto) 0.00 (0-0.5) K/uL Baso # (Auto) 0.01 (0-0.2) K/uL Sodium 138 (136-145) mmol/L Potassium 3.6 (3.5-5.1) mmol/L Chloride 106 (98-107) mmol/L Carbon Dioxide 25 (21-32) mmol/L Anion Gap 7.0 (3-11) BUN 10 (7-18) mg/dl Creatinine 0.64 (0.6-1.2) mg/dl Est Cr Clr Drug Dosing 77.7 ml/min Est GFR ( Amer) 110.1 Est GFR (Non-Af Amer) 95.0 BUN/Creatinine Ratio 15.4 (10-20) Glucose 215 H (70-99) mg/dl POC Glucose 216 H (70-99) mg/dl Estimat Average Glucose mg/dl Hemoglobin A1c (4.5-5.6) % Lactate (0.4-2.0) mmol/L Calcium 8.7 (8.5-10.1) mg/dl Total Bilirubin 2.2 H (0.2-1) mg/dl Direct Bilirubin (0-0.2) mg/dl AST 93 H (15-37) U/L ALT 200 H (12-78) U/L Alkaline Phosphatase 133 H (45-117) U/L Total Protein 6.5 (6.4-8.2) gm/dl Albumin 2.6 L (3.4-5.0) gm/dl Globulin 3.9 (2.5-4.0) gm/dl Albumin/Globulin Ratio 0.7 L (0.9-2) Procalcitonin (0-0.5) ng/ml
--- NOTE | 2019-10-22 11:21 | XRay Report ---
SINGLE VIEW CHEST CLINICAL HISTORY: Tachycardia. FINDINGS: An AP, portable, upright chest radiograph is compared to chest x-ray and chest CT dated 10/20. The examination is degraded by portable technique and patient rotation. An enteric tube has be en placed. The tip projects below the diaphragm over the mid to distal stomach. The heart is enlarged . The pulmonary vasculature is noncongested. There are small pleural effusions with bibasilar consoli dation. No pneumothorax is seen. The skeletal structures are osteopenic. The bony thorax is grossly i ntact. A surgical drain is again seen below the right hemidiaphragm. Cholecystectomy clips are noted in the right upper quadrant. IMPRESSION: 1. Cardiomegaly without radiographic evidence of congestive failure. 2. Small pleural effusions with bibasilar consolidation. This is unchanged to slightly increased from yesterday. 3. An enteric tube is new from yesterday. ACT 112: Negative or not required by law. Electronically signed by: Ronnie Claire M.D. 10/22/2019 11:19 AM
--- NOTE | 2019-10-22 11:27 | Electrocardiogram Report ---
Test Reason : Blood Pressure : / mmHG Vent. Rate : 135 BPM Atrial Rate : 135 BPM P-R Int : 152 ms QRS Dur : 082 ms QT Int : 320 ms P-R-T Axes : -21 -28 -29 degrees QTc Int : 480 ms Sinus tachycardia Anterior infarct , age undetermined Abnormal ECG When compared with ECG of 21-OCT-2019 02:03, (unconfirmed) Nonspecific T wave abnormality now evident in Lateral leads Confirmed by Rogelio Joshi ([id number]) on 10/22/2019 11:26:37 AM Referred By: Kwasi Gallardo Confirmed By:Rogelio Joshi
[2019-10-22] MEDS: cefTRIAXone SODIUM 2,000 MG in DEXTROSE 5% 50 ML IV SCH (12:01)
--- NOTE | 2019-10-22 14:11 | Pharmacy Report ---
Pharmacy Glycemic Short Note 2 - Date of Service October 22, 2019 - Glycemic Short BSG Results (Last 24 hours): 10/21/19 10/21/19 10/21/19 16:05 19:36 23:50 Glucose POC Glucose 192 H 165 H 198 H 10/22/19 10/22/19 10/22/19 04:19 05:56 11:59 Glucose 171 H POC Glucose 151 H 139 H OUTPATIENT ANTIDIABETIC REGIMEN: * Januvia 50mg PO qAM * HbA1c: 8.1% (10/22/19) ASSESSMENT: 10/22/19: * BSGs have been well-controlled thus far today. * Lantus was dosed twice yesterday. Combined to convert to once daily Lantus this morning. * Patient remains NPO. 10/21/19 * Ms Lee is a 63yo diabetic, admitted with cholelithiasis, POD #2 s/p lap sharmaine * BSGs have been elevated for the past 24 hours. * Basal insulin added this morning for better glycemic control. * Patient remains NPO. * Will continue to adjust as required. PLAN FOR INPATIENT GLYCEMIC CONTROL: * Hold outpatient oral diabetes medications * Basal insulin * Lantus 15 units SQ qAM * Bolus insulin * NovoLog per scale ACHS or Q6hrs while NPO * Goal Range: Low 110 mg/dL - High 140 mg/dL * Correction Factor: 30 mg/dL/unit * Nutritional / Prandial insulin per carb ratio of 1 unit per [] grams CHO consumed PLAN FOR DISCHARGE: * Patient's A1c (8.1%) indicates sub-optimal glycemic control as an outpatient. * Consider increasing Januvia dose on discharge.
--- NOTE | 2019-10-22 16:04 | XRay Report ---
KUB HISTORY: eval ileus COMPARISON: KUB 10/21/2019. FINDINGS: A few mildly dilated gas-filled loops of large and small bowel remain unchanged. There is a nasogastric tube within the mid stomach. There is a metallic common bile duct stent present. Prior c holecystectomy. Calcifications in the deep pelvis remain stable. No renal calculi. No ureteral calcu li. No pneumoperitoneum or pneumatosis. IMPRESSION: 1. Nasogastric tube terminates in the mid stomach. 2. A few mildly dilated gas-filled loops of large and small bowel persists. This may represent an ile us. ACT 112: Negative or not required by law. Electronically signed by: Devin Scott M.D. 10/22/2019 4:03 PM
[2019-10-22] MEDS: lisinopriL 10 MG TAB PO SCH (20:33)
--- NOTE | 2019-10-22 22:27 | Hospitalist Progress Note ---
Date of Service October 22, 2019 Assessment & Plan (1) Sepsis: Patient appears to be in sepsis. EUS and ERCP showed a bile leak from remannat biliary duct.. This is likely cause of her symptoms Patient remains tachycardic but much lower at 117 in comparison to 140. She has no longer been febrile however. LFTs improved. will repeat procal in AM. Cultures obtained but these were after antibiotics were given. will continue ceftriaxone 2gr and Metronidazol. will remain in tele until HR improves.. (2) Tachycardia: as stated above. reactive. (3) Elevated LFTs: secondary to biliary leak. (4) Biliary obstruction: as stated above (5) Acute cholecystitis: S/P cholecystectomy (6) Diabetes mellitus, type 2: On insulin. BS appears controled (7) Hyperlipidemia: atrovastatin is on hold for now. DVT pro:as per primary team. Admission and Anticipated Discharge Date Admission Date: October 20, 2019 Subjective Patient reports feeling significantly beter today. Her pain and nausea have improved. She denies any fever, chills, diaphoresis. Review of Systems Review of Systems: All systems reviewed & are unremarkable except as noted in HPI & below Physical Exam Constitutional: WD/WN, vitals as above well developed Eyes: PERRL, conjunctivae normal, anicteric sclerae Neck: trachea midline, no thyromegaly Respiratory: normal respiratory effort, lungs clear to auscultation Cardiovascular: Rate/Rhythm: + tachycardic Heart Sounds: normal S1 and normal S2 Gastrointestinal (Abdomen): normal bowel sounds, soft, nontender, no hepatosplenomegaly Musculoskeletal: no cyanosis or clubbing, extremities motor strength 5/5 Neurologic: PERRL, EOMI, accommodation nl, no face palsy, no dysarthria Psychiatric: A+Ox3, euthymic affect Results & Data Results & Data ([facility]) Vital Signs (Past 12 Hours) Vital Signs Temp Pulse Pulse Pulse Resp BP Pulse Ox 10/22/19 19:20 36.9 C 116 H 22 146/69 H 97 10/22/19 16:00 119 H 10/22/19 15:43 36.9 C 117 H 21 136/68 93 10/22/19 11:52 36.8 C 113 H 25 H 138/66 94 PG Care Time/CCT Total # of Minutes Spent Total Time Spent with Patient: Total time spent is greater than 50% in coordination of care (as documented) at patient's floor/unit and/or counseling patient: Coding Level of Care Code 20059 Subseq Hosp Care Lvl 3 Diagnoses Sepsis A41.9 Sepsis acute organ dysfunction status: without acute organ dysfunction Sepsis type: sepsis due to unspecified organism Tachycardia R00.0 Elevated LFTs R79.89 Biliary obstruction K83.1 Acute cholecystitis K81.0 Diabetes mellitus, type 2 E11.9 Hyperlipidemia E78.5 Time Spent (min) 35 (1) Sepsis Sepsis acute organ dysfunction status: without acute organ dysfunction Sepsis type: sepsis due to unspecified organism Qualified Code(s): A41.9 - Sepsis, unspecified organism
[2019-10-23] MEDS: INSULIN ASPART 100 UNITS/ML 3 ML PEN SC SCH ×4 (00:08→17:05)
[2019-10-23] MEDS: metroNIDAZOLE 500 MG/100 ML BAG IV SCH ×3 (01:59→17:04)
[2019-10-23 04:39] LABS: Basophils # (auto) 0.01 K/uL (0-0.2); Basophils % (auto) 0.1 %; Eosinophils # (auto) 0.07 K/uL (0-0.5); Eosinophils % (auto) 0.7 %; Hematocrit (blood only) 28.7 % (37-47); Hemoglobin 9.5 g/dL (12.0-16.0); Immature Granulocytes # (auto) 0.04 K/uL (0.00-0.02); Immature Granulocytes % (auto) 0.4 %; Lymphocytes # (auto) 0.92 K/uL (1.2-3.4); Lymphocytes % (auto) 8.7 %; Mean Corpuscular Hemoglobin 30.1 pg (25-34); Mean Corpuscular Hgb Conc 33.1 g/dL (32-36); Mean Corpuscular Volume 90.8 fL (80-100); Mean Platelet Volume 8.8 fL (7.4-10.4); Monocytes # (auto) 0.85 K/uL (0.11-0.59); Neutrophils # (auto) 8.74 K/uL (1.4-6.5); Neutrophils % (auto) 82.1 %; Platelet Count 234 K/uL (130-400); RDW Coefficient of Variation 13.5 % (11.5-14.5); RDW Standard Deviation 45.2 fL (36.4-46.3); Red Blood Count 3.16 M/uL (4.2-5.4); White Blood Count 10.63 K/uL (4.8-10.8)
[2019-10-23 04:57] LABS: Albumin Level 1.8 gm/dl (3.4-5.0); Calcium 7.5 mg/dl (8.5-10.1); Creatinine Clr Calc Pharmacy 103.6 ml/min; Est GFR (Non-African American) 104.4; Potassium 3.2 mmol/L (3.5-5.1)
[2019-10-23 05:07] LABS: Albumin Globulin Ratio 0.5 (0.9-2); Bilirubin,Total 0.9 mg/dl (0.2-1); Globulin 3.5 gm/dl (2.5-4.0); Total Protein 5.3 gm/dl (6.4-8.2)
[2019-10-23] MEDS: NSS + 20MEQ KCL 20 MEQ/1,000 ML BAG IV SCH (06:21)
--- NOTE | 2019-10-23 07:41 | Surgery Progress Note ---
Date of Service October 23, 2019 Assessment & Plan (1) Bile leak, postoperative: doing well. LFT's continue to decrease CONOR without bile pt comfortable. no peritonitis. +bowel fx no appetite yet. leave on clears. pt at high risk for ileus. if does well today will advance diet tomorrow. (2) Hx laparoscopic cholecystectomy: Subjective pt seen. feeling better each day. tolerated clears. multiple large BM's overnight Physical Exam Physical Exam: alert. nad abd: soft. wounds look good. CONOR scan. no bile. serous. Results & Data Vital Signs (Past 12 Hours) Vital Signs Temp Pulse Resp BP Pulse Ox 10/23/19 03:22 36.7 C 110 H 22 143/78 H 92 10/22/19 23:26 37.1 C 107 H 22 128/73 97 PG Care Time/CCT Total # of Minutes Spent Total Time Spent with Patient: Total time spent is greater than 50% in coordination of care (as documented) at patient's floor/unit and/or counseling patient: Coding Level of Care Code None Diagnoses Bile leak, postoperative K91.89; K83.8 Hx laparoscopic cholecystectomy Z90.49
[2019-10-23] MEDS: INSULIN GLARGINE SOLOSTAR 100 UNITS/ML 3 ML PEN SC SCH (08:15)
[2019-10-23] MEDS ORDERED: POTASSIUM CHLORIDE 20 MEQ/15 ML UDC PO ONE (08:30)
--- NOTE | 2019-10-23 13:00 | Pharmacy Report ---
Pharmacy Glycemic Short Note 2 - Date of Service October 23, 2019 - Glycemic Short BSG Results (Last 24 hours): 10/22/19 10/22/19 10/23/19 18:01 23:59 04:28 Glucose 135 H POC Glucose 112 H 159 H 10/23/19 10/23/19 05:57 11:15 Glucose POC Glucose 123 H 183 H OUTPATIENT ANTIDIABETIC REGIMEN: * Januvia 50mg PO qAM * HbA1c: 8.1% (10/22/19) ASSESSMENT: 10/23/19 * BSGs well controlled yesterday with 15 units of lantus, 2 units of correctional * Patient improving, possible clears today with advancement in diet if tolerated- will add loose carb coverage in anticipation of clears * Will continue current lantus dose, fasting this AM 123 * 10/22/19: * BSGs have been well-controlled thus far today. * Lantus was dosed twice yesterday. Combined to convert to once daily Lantus this morning. * Patient remains NPO. 10/21/19 * Ms Lee is a 63yo diabetic, admitted with cholelithiasis, POD #2 s/p lap sharmaine * BSGs have been elevated for the past 24 hours. * Basal insulin added this morning for better glycemic control. * Patient remains NPO. * Will continue to adjust as required. PLAN FOR INPATIENT GLYCEMIC CONTROL: * Hold outpatient oral diabetes medications * Basal insulin * Lantus 15 units SQ qAM * Bolus insulin * NovoLog per scale ACHS or Q6hrs while NPO * Goal Range: Low 110 mg/dL - High 140 mg/dL * Correction Factor: 30 mg/dL/unit * Nutritional / Prandial insulin per carb ratio of 1 unit per 15 grams CHO consumed PLAN FOR DISCHARGE: * Patient's A1c (8.1%) indicates sub-optimal glycemic control as an outpatient. * Consider increasing Januvia dose on discharge.
[2019-10-23] MEDS: cefTRIAXone SODIUM 2,000 MG in DEXTROSE 5% 50 ML IV SCH (13:52)
--- NOTE | 2019-10-23 15:17 | Gastroenterology Progress Note ---
Date of Service October 23, 2019 Assessment & Plan (1) Bile leak, postoperative: 63 y/o female admitted with cholecystitis, s/p lap sharmaine 10/19/19 and GI consulted for abnormal MCRP/possible biliary obstruction with worsening LFTs and fever, tachycardia concerning for cholangitis. ERCP demonstrated bile leak from the cystic duct remnant, with one covered metal biliary stent was placed into the CBD. This AM pt reports feeling much better; LFTs now normal. Remains slightly tachycardic. Post-op ileus has clinically improved; pt had several large BMs overnight, tolerating clears, and NGT has been removed. - Continue ABX - Avoid NSAIDs, ASA for 5 days - Repeat ERCP 8 week to remove stent - Would correct electrolytes to keep K+ > 4 and Mg > 2 for bowel motility - Out of bed as tolerated - Will defer post-op care as per surgery - Analgesia, antiemetics PRN - GI will sign off, please call with questions. Admission and Anticipated Discharge Date Admission Date: October 20, 2019 Supervising Physician Co-Signing Physician Notes I performed a history and physical examination of the patient today, including specifically on physical exam - soft abdomen. I have discussed the patient's management with the advanced practitioner. Please refer to the nurse practitioner's note for the documented findings and plan of care. Subjective Pt doing well overnight; had several large BMs. Minimal serous outpt in CONOR drain. Feeling much better, abd pain improved. No n/v, fever. Transaminases and tbili WNL. Pt tolerating clears. NGT has been removed. Review of Systems Review of Systems: All systems reviewed & are unremarkable except as noted in HPI & below Results & Data ([facility]) Vital Signs (Past 12 Hours) Vital Signs Temp Pulse Resp BP Pulse Ox 10/23/19 11:26 37.7 C H 94 H 19 136/75 90 10/23/19 07:44 37.2 C 97 H 20 129/68 95 10/23/19 03:22 36.7 C 110 H 22 143/78 H 92 Laboratory Results 10/23/19 10/23/19 10/23/19 Range/Units 11:15 05:57 04:28 WBC (4.8-10.8) K/uL RBC (4.2-5.4) M/uL Hgb (12.0-16.0) g/dL Hct (37-47) % MCV (80-100) fL MCH (25-34) pg MCHC (32-36) g/dL RDW Std Deviation (36.4-46.3) fL RDW Coeff of Debra (11.5-14.5) % Plt Count (130-400) K/uL MPV (7.4-10.4) fL Immature Gran % (Auto) % Neut % (Auto) % Lymph % (Auto) % [place] % (Auto) % Eos % (Auto) % Baso % (Auto) % Immature Gran # (Auto) (0.00-0.02) K/uL Neut # (Auto) (1.4-6.5) K/uL Lymph # (Auto) (1.2-3.4) K/uL [place] # (Auto) (0.11-0.59) K/uL Eos # (Auto) (0-0.5) K/uL Baso # (Auto) (0-0.2) K/uL Sodium (136-145) mmol/L Potassium (3.5-5.1) mmol/L Chloride (98-107) mmol/L Carbon Dioxide (21-32) mmol/L Anion Gap (3-11) BUN (7-18) mg/dl Creatinine (0.6-1.2) mg/dl Est Cr Clr Drug Dosing ml/min Est GFR ( Amer) Est GFR (Non-Af Amer) BUN/Creatinine Ratio (10-20) Glucose (70-99) mg/dl POC Glucose 183 H 123 H (70-99) mg/dl Calcium (8.5-10.1) mg/dl Total Bilirubin (0.2-1) mg/dl AST (15-37) U/L ALT (12-78) U/L Alkaline Phosphatase (45-117) U/L Total Protein (6.4-8.2) gm/dl Albumin (3.4-5.0) gm/dl Globulin (2.5-4.0) gm/dl Albumin/Globulin Ratio (0.9-2) Procalcitonin 4.70 H (0-0.5) ng/ml 10/23/19 10/23/19 10/22/19 Range/Units 04:28 04:28 23:59 WBC 10.63 (4.8-10.8) K/uL RBC 3.16 L (4.2-5.4) M/uL Hgb 9.5 L (12.0-16.0) g/dL Hct 28.7 L (37-47) % MCV 90.8 (80-100) fL MCH 30.1 (25-34) pg MCHC 33.1 (32-36) g/dL RDW Std Deviation 45.2 (36.4-46.3) fL RDW Coeff of Debra 13.5 (11.5-14.5) % Plt Count 234 (130-400) K/uL MPV 8.8 (7.4-10.4) fL Immature Gran % (Auto) 0.4 % Neut % (Auto) 82.1 % Lymph % (Auto) 8.7 % [place] % (Auto) 8.0 % Eos % (Auto) 0.7 % Baso % (Auto) 0.1 % Immature Gran # (Auto) 0.04 H (0.00-0.02) K/uL Neut # (Auto) 8.74 H (1.4-6.5) K/uL Lymph # (Auto) 0.92 L (1.2-3.4) K/uL [place] # (Auto) 0.85 H (0.11-0.59) K/uL Eos # (Auto) 0.07 (0-0.5) K/uL Baso # (Auto) 0.01 (0-0.2) K/uL Sodium 141 (136-145) mmol/L Potassium 3.2 L (3.5-5.1) mmol/L Chloride 111 H (98-107) mmol/L Carbon Dioxide 24 (21-32) mmol/L Anion Gap 6.0 (3-11) BUN 11 (7-18) mg/dl Creatinine 0.48 L (0.6-1.2) mg/dl Est Cr Clr Drug Dosing 103.6 ml/min Est GFR ( Amer) 121.0 Est GFR (Non-Af Amer) 104.4 BUN/Creatinine Ratio 22.0 H (10-20) Glucose 135 H (70-99) mg/dl POC Glucose 159 H (70-99) mg/dl Calcium 7.5 L (8.5-10.1) mg/dl Total Bilirubin 0.9 D (0.2-1) mg/dl AST 19 (15-37) U/L ALT 71 (12-78) U/L Alkaline Phosphatase 86 (45-117) U/L Total Protein 5.3 L (6.4-8.2) gm/dl Albumin 1.8 L (3.4-5.0) gm/dl Globulin 3.5 (2.5-4.0) gm/dl Albumin/Globulin Ratio 0.5 L (0.9-2) Procalcitonin (0-0.5) ng/ml 10/22/19 Range/Units 18:01 WBC (4.8-10.8) K/uL RBC (4.2-5.4) M/uL Hgb (12.0-16.0) g/dL Hct (37-47) % MCV (80-100) fL MCH (25-34) pg MCHC (32-36) g/dL RDW Std Deviation (36.4-46.3) fL RDW Coeff of Debra (11.5-14.5) % Plt Count (130-400) K/uL MPV (7.4-10.4) fL Immature Gran % (Auto) % Neut % (Auto) % Lymph % (Auto) % [place] % (Auto) % Eos % (Auto) % Baso % (Auto) % Immature Gran # (Auto) (0.00-0.02) K/uL Neut # (Auto) (1.4-6.5) K/uL Lymph # (Auto) (1.2-3.4) K/uL [place] # (Auto) (0.11-0.59) K/uL Eos # (Auto) (0-0.5) K/uL Baso # (Auto) (0-0.2) K/uL Sodium (136-145) mmol/L Potassium (3.5-5.1) mmol/L Chloride (98-107) mmol/L Carbon Dioxide (21-32) mmol/L Anion Gap (3-11) BUN (7-18) mg/dl Creatinine (0.6-1.2) mg/dl Est Cr Clr Drug Dosing ml/min Est GFR ( Amer) Est GFR (Non-Af Amer) BUN/Creatinine Ratio (10-20) Glucose (70-99) mg/dl POC Glucose 112 H (70-99) mg/dl Calcium (8.5-10.1) mg/dl Total Bilirubin (0.2-1) mg/dl AST (15-37) U/L ALT (12-78) U/L Alkaline Phosphatase (45-117) U/L Total Protein (6.4-8.2) gm/dl Albumin (3.4-5.0) gm/dl Globulin (2.5-4.0) gm/dl Albumin/Globulin Ratio (0.9-2) Procalcitonin (0-0.5) ng/ml
[2019-10-23] MEDS: lisinopriL 10 MG TAB PO SCH (21:30)
--- NOTE | 2019-10-23 22:42 | Hospitalist Progress Note ---
Date of Service October 23, 2019 Assessment & Plan (1) Sepsis: Patient appeared to be in sepsis. EUS and ERCP showed a bile leak from remnant biliary duct.. This was likely cause of her symptoms Patient remains tachycardic but much lower at 93 in comparison to 140. She has no longer been febrile however. LFTs improved. Cultures obtained but these were after antibiotics were given. will continue ceftriaxone 2gr and Metronidazol. will remain in tele until HR improves.. (2) Tachycardia: as stated above. reactive. (3) Elevated LFTs: secondary to biliary leak. (4) Biliary obstruction: as stated above (5) Acute cholecystitis: S/P cholecystectomy (6) Diabetes mellitus, type 2: On insulin. BS appears controled (7) Hyperlipidemia: atrovastatin is on hold for now. DVT pro:as per primary team. Admission and Anticipated Discharge Date Admission Date: October 20, 2019 Subjective Patient reports feeling better. Her pain has improved, Review of Systems Review of Systems: All systems reviewed & are unremarkable except as noted in HPI & below Physical Exam Constitutional: WD/WN, vitals as above well developed Eyes: PERRL, conjunctivae normal, anicteric sclerae Neck: trachea midline, no thyromegaly Respiratory: normal respiratory effort, lungs clear to auscultation Cardiovascular: Rate/Rhythm: + tachycardic Heart Sounds: normal S1 and normal S2 Gastrointestinal (Abdomen): normal bowel sounds, soft, nontender, no hepatosplenomegaly Musculoskeletal: no cyanosis or clubbing, extremities motor strength 5/5 Neurologic: PERRL, EOMI, accommodation nl, no face palsy, no dysarthria Psychiatric: A+Ox3, euthymic affect Results & Data Results & Data ([facility]) Vital Signs (Past 12 Hours) Vital Signs Temp Pulse Resp BP BP Pulse Ox 10/23/19 20:01 37.5 C 93 H 23 147/80 H 91 10/23/19 15:50 37.1 C 97 H 34 H 150/75 H 93 10/23/19 11:26 37.7 C H 94 H 19 136/75 90 PG Care Time/CCT Total # of Minutes Spent Total Time Spent with Patient: Total time spent is greater than 50% in coordination of care (as documented) at patient's floor/unit and/or counseling patient: Coding Level of Care Code 82624 Subseq Hosp Care Lvl 2 Diagnoses Sepsis A41.9 Sepsis acute organ dysfunction status: without acute organ dysfunction Sepsis type: sepsis due to unspecified organism Tachycardia R00.0 Elevated LFTs R79.89 Biliary obstruction K83.1 Acute cholecystitis K81.0 Diabetes mellitus, type 2 E11.9 Hyperlipidemia E78.5 Time Spent (min) 25 (1) Sepsis Sepsis acute organ dysfunction status: without acute organ dysfunction Sepsis type: sepsis due to unspecified organism Qualified Code(s): A41.9 - Sepsis, unspecified organism
[2019-10-23] MEDS ORDERED: Nursing to Pharmacy Communication ONE (23:18)
[2019-10-24] MEDS: metroNIDAZOLE 500 MG/100 ML BAG IV SCH ×3 (02:15→19:31)
[2019-10-24 04:54] LABS: Hematocrit (blood only) 31.5 % (37-47); Hemoglobin 10.5 g/dL (12.0-16.0); Mean Corpuscular Hgb Conc 33.3 g/dL (32-36); Mean Platelet Volume 8.6 fL (7.4-10.4); Platelet Count 269 K/uL (130-400); RDW Coefficient of Variation 13.7 % (11.5-14.5); RDW Standard Deviation 45.3 fL (36.4-46.3); White Blood Count 13.86 K/uL (4.8-10.8)
[2019-10-24 05:12] LABS: Albumin Level 1.9 gm/dl (3.4-5.0); BUN Creatinine Ratio 19.4 (10-20); Calcium 7.8 mg/dl (8.5-10.1); Creatinine Clr Calc Pharmacy 103.6 ml/min; Est GFR (Non-African American) 104.4; Potassium 3.1 mmol/L (3.5-5.1)
[2019-10-24 05:56] LABS: Bilirubin Direct 0.2 mg/dl (0-0.2); Bilirubin,Total 0.8 mg/dl (0.2-1); Total Protein 5.6 gm/dl (6.4-8.2)
--- NOTE | 2019-10-24 08:37 | Surgery Progress Note ---
Date of Service October 24, 2019 Assessment & Plan (1) Hx laparoscopic cholecystectomy: doing well will advance diet will transfer to med/surg wbc slightly up today 13,000...? etiology. will recheck tomorrow d/c planning hopefully next 24-48 hours. Subjective continues to improve. only c/o is loose bm's. no n/v. eros liquids. Physical Exam Physical Exam: alert. nad. abd: soft. mild distension. CONOR serous/pink. Results & Data Vital Signs (Past 12 Hours) Vital Signs Temp Pulse Pulse Resp BP Pulse Ox 10/24/19 07:30 37.3 C 92 H 26 H 155/85 H 94 10/24/19 04:06 37.1 C 92 H 26 H 148/78 H 94 10/24/19 00:00 92 H PG Care Time/CCT Total # of Minutes Spent Total Time Spent with Patient: Total time spent is greater than 50% in coordination of care (as documented) at patient's floor/unit and/or counseling patient: Coding Level of Care Code None Diagnoses Hx laparoscopic cholecystectomy Z90.49
[2019-10-24] MEDS: INSULIN ASPART 100 UNITS/ML 3 ML PEN SC SCH ×4 (08:38→21:03)
[2019-10-24] MEDS: INSULIN GLARGINE SOLOSTAR 100 UNITS/ML 3 ML PEN SC SCH (08:39)
[2019-10-24] MEDS ORDERED: POTASSIUM CHLORIDE 20 MEQ TABCR PO ONE (09:30)
[2019-10-24] MEDS: cefTRIAXone SODIUM 2,000 MG in DEXTROSE 5% 50 ML IV SCH (11:42)
[2019-10-24] MEDS: POTASSIUM CHLORIDE 20 MEQ TABCR PO SCH ×2 (14:20→21:12)
[2019-10-24] MEDS: ONDANSETRON INJ 2 MG/ML 2 ML VIAL IV PRN (18:02)
[2019-10-24] MEDS: lisinopriL 10 MG TAB PO SCH (21:35)
--- NOTE | 2019-10-24 22:25 | Hospitalist Progress Note ---
Date of Service October 24, 2019 Assessment & Plan (1) Sepsis: Patient appeared to be in sepsis. EUS and ERCP showed a bile leak from remnant biliary duct. This was likely cause of her symptoms. Patient remains tachycardic in the 90s. WBC is gradually going up. She has no longer been febrile however. LFTs improved. Cultures obtained but these were after antibiotics were given. will continue ceftriaxone 2gr and Metronidazol. Patient is being transferred back to medical as per primary team. (2) Tachycardia: as stated above. reactive. Concern that patient may be developing c diff colitis. or perhaps reactive to ileus. (3) Elevated LFTs: secondary to biliary leak. (4) Biliary obstruction: as stated above (5) Acute cholecystitis: S/P cholecystectomy (6) Diabetes mellitus, type 2: On insulin. BS appears controled (7) Hyperlipidemia: atrovastatin is on hold for now. DVT pro:as per primary team. (8) Ileus, postoperative: improved after NG tube. NG tube is now removed as patient is having diarrhea. Though patient has had diarrhea in the past, patient states it is not constant. Given elevated WBC. Admission and Anticipated Discharge Date Admission Date: October 20, 2019 Subjective 63 yo female reports feeling better today. She continues to have diarrhea but reports that the frequency is less. She denies any fever, chills, Review of Systems Review of Systems: All systems reviewed & are unremarkable except as noted in HPI & below Physical Exam Constitutional: WD/WN, vitals as above well developed Eyes: PERRL, conjunctivae normal, anicteric sclerae Neck: trachea midline, no thyromegaly Respiratory: normal respiratory effort, lungs clear to auscultation Cardiovascular: Rate/Rhythm: + tachycardic Heart Sounds: normal S1 and normal S2 Gastrointestinal (Abdomen): normal bowel sounds, soft, nontender, no hepatosplenomegaly Musculoskeletal: no cyanosis or clubbing, extremities motor strength 5/5 Neurologic: PERRL, EOMI, accommodation nl, no face palsy, no dysarthria Psychiatric: A+Ox3, euthymic affect Results & Data Results & Data ([facility]) Vital Signs (Past 12 Hours) Vital Signs Temp Pulse Resp BP BP Pulse Ox 10/24/19 15:44 37.2 C 92 H 18 157/65 H 93 10/24/19 11:30 37.0 C 90 18 138/85 93 PG Care Time/CCT Total # of Minutes Spent Total Time Spent with Patient: Total time spent is greater than 50% in coordination of care (as documented) at patient's floor/unit and/or counseling patient: Coding Level of Care Code 18489 Subseq Hosp Care Lvl 2 Diagnoses Sepsis A41.9 Sepsis acute organ dysfunction status: without acute organ dysfunction Sepsis type: sepsis due to unspecified organism Tachycardia R00.0 Elevated LFTs R79.89 Biliary obstruction K83.1 Acute cholecystitis K81.0 Diabetes mellitus, type 2 E11.9 Hyperlipidemia E78.5 Ileus, postoperative K91.89; K56.7 Time Spent (min) 25 (1) Sepsis Sepsis acute organ dysfunction status: without acute organ dysfunction Sepsis type: sepsis due to unspecified organism Qualified Code(s): A41.9 - Sepsis, unspecified organism
[2019-10-25] MEDS: metroNIDAZOLE 500 MG/100 ML BAG IV SCH ×3 (00:41→18:31)
[2019-10-25 06:46] LABS: Hematocrit (blood only) 33.9 % (37-47); Hemoglobin 10.9 g/dL (12.0-16.0); Mean Corpuscular Hemoglobin 29.1 pg (25-34); Mean Corpuscular Hgb Conc 32.2 g/dL (32-36); Mean Corpuscular Volume 90.4 fL (80-100); Mean Platelet Volume 8.9 fL (7.4-10.4); Platelet Count 328 K/uL (130-400); RDW Coefficient of Variation 13.7 % (11.5-14.5); RDW Standard Deviation 45.6 fL (36.4-46.3); Red Blood Count 3.75 M/uL (4.2-5.4); White Blood Count 14.92 K/uL (4.8-10.8)
[2019-10-25 07:27] LABS: Albumin Level 2.1 gm/dl (3.4-5.0); BUN Creatinine Ratio 17.3 (10-20); Bilirubin Direct 0.2 mg/dl (0-0.2); Bilirubin,Total 0.7 mg/dl (0.2-1); Calcium 8.1 mg/dl (8.5-10.1); Creatinine Clr Calc Pharmacy 108.1 ml/min; Est GFR (African American) 122.7; Est GFR (Non-African American) 105.9; Potassium 3.6 mmol/L (3.5-5.1)
[2019-10-25] MEDS: POTASSIUM CHLORIDE 20 MEQ TABCR PO SCH ×3 (08:30→20:51)
--- NOTE | 2019-10-25 08:32 | Hospitalist Progress Note ---
Date of Service October 25, 2019 Assessment & Plan (1) Sepsis: Patient was in sepsis but this no longer is the case, as her HR has improved.. EUS and ERCP showed a bile leak from remnant biliary duct. This was likely cause of her symptoms. Clinically patient is doing better. Patient has a HR in the high 80s now. Only concern is WBC is gradually going up for 2 days now. will check an x ray of chest, UA and stool for c diff, She has no longer been febrile however. LFTs improved. Cultures obtained but these were after antibiotics were given. will continue ceftriaxone 2gr and Metronidazol. Patient is now in medical. May consider discharge tomorrrow if continues to do well clinically. (2) Tachycardia: as stated above. reactive. Concern that patient may be developing c diff colitis. or perhaps reactive to ileus. (3) Elevated LFTs: secondary to biliary leak. (4) Biliary obstruction: as stated above (5) Acute cholecystitis: S/P cholecystectomy (6) Diabetes mellitus, type 2: On insulin. BS appears controled (7) Hyperlipidemia: atrovastatin is on hold for now. DVT pro:as per primary team. (8) Ileus, postoperative: improved after NG tube. NG tube is now removed as patient is having diarrhea. Though patient has had diarrhea in the past, patient states it is not constant. Given elevated WBC. D/W primary team and patient. Admission and Anticipated Discharge Date Admission Date: October 20, 2019 Subjective Patient reports feeling better. She states that her stools are more formed but continue to be loose. She denies any dysuria, cough, fever, chills. She feels less distended and would like to take a shower. Patient is actually asking to go home today. Review of Systems Review of Systems: All systems reviewed & are unremarkable except as noted in HPI & below Physical Exam Constitutional: WD/WN, vitals as above well developed Eyes: PERRL, conjunctivae normal, anicteric sclerae Neck: trachea midline, no thyromegaly Respiratory: normal respiratory effort, lungs clear to auscultation Cardiovascular: RRR, no murmur, no edema Heart Sounds: normal S1 and normal S2 Gastrointestinal (Abdomen): normal bowel sounds, soft, nontender, no hepatosplenomegaly Musculoskeletal: no cyanosis or clubbing, extremities motor strength 5/5 Neurologic: PERRL, EOMI, accommodation nl, no face palsy, no dysarthria Psychiatric: A+Ox3, euthymic affect Results & Data Results & Data ([facility]) Vital Signs (Past 12 Hours) Vital Signs Temp Pulse Resp BP BP Pulse Ox 10/25/19 07:20 36.9 C 88 16 149/88 H 93 10/24/19 23:20 37.1 C 92 H 18 161/85 H 91 PG Care Time/CCT Total # of Minutes Spent Total Time Spent with Patient: Total time spent is greater than 50% in coordination of care (as documented) at patient's floor/unit and/or counseling patient: Coding Level of Care Code 33571 Subseq Hosp Care Lvl 3 Diagnoses Sepsis A41.9 Sepsis acute organ dysfunction status: without acute organ dysfunction Sepsis type: sepsis due to unspecified organism Tachycardia R00.0 Elevated LFTs R79.89 Biliary obstruction K83.1 Acute cholecystitis K81.0 Diabetes mellitus, type 2 E11.9 Hyperlipidemia E78.5 Ileus, postoperative K91.89; K56.7 Time Spent (min) 35 (1) Sepsis Sepsis acute organ dysfunction status: without acute organ dysfunction Sepsis type: sepsis due to unspecified organism Qualified Code(s): A41.9 - Sepsis, unspecified organism
--- NOTE | 2019-10-25 08:45 | Surgery Progress Note ---
Date of Service October 25, 2019 Assessment & Plan (1) Hx laparoscopic cholecystectomy: clinically doing well but wbc up 2 days in a row will check UA/CXR/c.diff hold d/c for now. if wbc up again may need CT of abdomen/pelvis if wbc decreases over weekend, can d/c CONOR and d/c home Subjective pt feeling well and would like to go home. eros diet. pain improving daily Physical Exam Physical Exam: alert. oriented. nad abd: soft. incisions look good. CONOR pink/serous. Results & Data Vital Signs (Past 12 Hours) Vital Signs Temp Pulse Resp BP BP Pulse Ox 10/25/19 07:20 36.9 C 88 16 149/88 H 93 10/24/19 23:20 37.1 C 92 H 18 161/85 H 91 PG Care Time/CCT Total # of Minutes Spent Total Time Spent with Patient: Total time spent is greater than 50% in coordination of care (as documented) at patient's floor/unit and/or counseling patient: Coding Level of Care Code None Diagnoses Hx laparoscopic cholecystectomy Z90.49
[2019-10-25] MEDS: INSULIN ASPART 100 UNITS/ML 3 ML PEN SC SCH ×4 (09:30→20:57)
[2019-10-25] MEDS: INSULIN GLARGINE SOLOSTAR 100 UNITS/ML 3 ML PEN SC SCH (09:30)
--- NOTE | 2019-10-25 09:30 | XRay Report ---
XR chest 2V PA/lateral HISTORY: leukocytosis COMPARISON: Chest 10/22/2019. FINDINGS: No pneumothorax. Small bilateral pleural effusions and bibasilar densities persist. No evid ence for pulmonary edema. The heart remains borderline enlarged. Prior cholecystectomy. There is a ri ght subdiaphragmatic drain which remains unchanged in position. Nasogastric tube has been removed. IMPRESSION: 1. No change in the small bilateral pleural effusions and bibasilar densities. This favors atelectasi s but could represent a pneumonia. 2. Right subdiaphragmatic drain remains unchanged in position. ACT 112: Negative or not required by law. Electronically signed by: Devin Scott M.D. 10/25/2019 9:29 AM
[2019-10-25] MEDS: cefTRIAXone SODIUM 2,000 MG in DEXTROSE 5% 50 ML IV SCH (11:29)
[2019-10-25 12:07] LABS: Appearance Urine Clear (Clear); Bacteria Urine Automated Negative (Negative); Bilirubin Urine Negative (Negative); Blood Urine Negative (Negative); Cast Urine Automated 0 /lpf (0-5); Color Urine Yellow; Glucose Urine UA 1+ (Negative); Ketones Urine Trace (Negative); Leukocyte Esterase Urine Negative (Negative); Nitrite Urine Negative (Negative); Protein Urine Trace (Negative); RBC Urine Automated 0-4 /hpf (0-4); Specific Gravity Urine 1.012 (1.000-1.030); Urobilinogen Urine Negative (Negative); pH Urine 6.5 (4.5-7.5)
--- NOTE | 2019-10-25 14:37 | Pharmacy Report ---
Glycemic Control Progress Note - Date of Service October 25, 2019 - Scope Glycemic Pharmacist consulted for glycemic control to write orders per [facility] inpatient glycemic control protocol. - Objective Accuchecks BSG(last 24 hours):: 10/24/19 10/24/19 10/25/19 17:10 20:54 06:34 Glucose 147 H POC Glucose 135 H 194 H 10/25/19 10/25/19 08:11 12:21 Glucose POC Glucose 150 H 214 H HbA1c:: Hemoglobin A1c 8.1 % (4.5-5.6) H 10/22/19 04:19 - Recent Pertinent Medications The patient is currently receiving: * Basal insulin: Lantus 15 units every 24 hours * Correctional Insulin: Novolog Correction per scale ACHS Goal Range: Low 110 mg/dL - High 140 mg/dL Correction Factor: 30 mg/dL/unit * Prandial insulin: Per carb ratio of 1 unit per 13 grams CHO consumed - Outpatient Anti-Diabetic Meds Januvia 50 mg qAM - Assessment & Plan ASSESSMENT: * See progress note from 10/21/2019 for more background info, in short: * Pt receiving SQ basal bolus insulin regimen for hyperglycemia secondary to baseline DM (outpatient regimen on hold) and cholelithiasis (currently on Rocephin and Flagyl) * Patient is currently receiving an average of 22 units of insulin per day * 15 units of basal insulin * 7 units of prandial/correctional insulin * BSGs ranging 111 - 194 mg/dl over the past 24hrs * Changes needed to insulin regimen: * AM Fasting BSG = 147 mg/dl. This is in goal range for patient based on inpatient targets and co-morbidities. Therefore Basal insulin will be continued * Post-prandial BSGs trend upwards. Tightened Carbohydrate ratio for breakfast. Lunch BSG trended up significantly so tightened that as well. * Total daily dose = ~25-30 units. Tightened Novolog coverage * Additional notes / comments: continue to hold Januvia PLAN FOR INPATIENT GLYCEMIC CONTROL: * Continuing Lantus 15 units SQ qAM * Continuing correction factor of 30 mg/dl/unit * TIGHTENING carb ratio to 1 unit per 9 grams CHO consumed * Continuing goal range of Low 110 mg/dL - High 140 mg/dL RECOMMENDATIONS FOR DISCHARGE: * Patient's Creatinine clearance is above 50 mL/min, recommend increasing Januvia to 100 mg daily. * The above will only lower A1C slightly; however, recommend maximizing agent before adding another. * Patient's HbA1C is above a goal of around 7.5%. Consider adding additional agent such as metformin ER 500 mg daily to help lower. * recommend vitamin B12 while taking metformin ER 500 mg daily. * Titrate weekly to max dose of 2000 mg daily (1000 mg BID) Thank you.
[2019-10-25] MEDS: lisinopriL 10 MG TAB PO SCH (20:51)
[2019-10-26] MEDS: metroNIDAZOLE 500 MG/100 ML BAG IV SCH ×2 (01:55→08:29)
[2019-10-26 07:56] LABS: Hematocrit (blood only) 34.2 % (37-47); Hemoglobin 11.4 g/dL (12.0-16.0); Mean Corpuscular Hemoglobin 29.8 pg (25-34); Mean Corpuscular Hgb Conc 33.3 g/dL (32-36); Mean Corpuscular Volume 89.5 fL (80-100); Mean Platelet Volume 9.3 fL (7.4-10.4); Platelet Count 394 K/uL (130-400); RDW Coefficient of Variation 13.9 % (11.5-14.5); RDW Standard Deviation 45.5 fL (36.4-46.3); Red Blood Count 3.82 M/uL (4.2-5.4)
[2019-10-26] MEDS: POTASSIUM CHLORIDE 20 MEQ TABCR PO SCH (08:25)
[2019-10-26 08:28] LABS: Albumin Level 2.2 gm/dl (3.4-5.0); BUN Creatinine Ratio 16.7 (10-20); Bilirubin Direct 0.2 mg/dl (0-0.2); Calcium 8.4 mg/dl (8.5-10.1); Creatinine Clr Calc Pharmacy 103.6 ml/min; Est GFR (Non-African American) 104.4; Potassium 4.1 mmol/L (3.5-5.1)
[2019-10-26] MEDS: INSULIN GLARGINE SOLOSTAR 100 UNITS/ML 3 ML PEN SC SCH (08:30)
[2019-10-26] MEDS: INSULIN ASPART 100 UNITS/ML 3 ML PEN SC SCH ×2 (08:30→12:38)
[2019-10-26 08:31] LABS: Bilirubin,Total 0.8 mg/dl (0.2-1); Total Protein 6.1 gm/dl (6.4-8.2)
[2019-10-26] MEDS: cefTRIAXone SODIUM 2,000 MG in DEXTROSE 5% 50 ML IV SCH (12:06)
--- NOTE | 2019-10-26 15:10 | Surgery Progress Note ---
Date of Service doing better, no abdominal pain, tolerated diet, no nausea, no vomiting, CONOR 60ml, clear October 26, 2019 Assessment & Plan (1) Hx laparoscopic cholecystectomy: doing fine, pt wants to go home, the post-op care instruction was given, Subjective pt feeling well and would like to go home. eros diet. pain improving daily Physical Exam Constitutional: WD/WN, vitals as above Eyes: PERRL, conjunctivae normal, anicteric sclerae Neck: trachea midline, no thyromegaly Respiratory: normal respiratory effort, lungs clear to auscultation Cardiovascular: RRR, no murmur, no edema Gastrointestinal (Abdomen): Percussion/Palpation: abdomen soft NT, ND, BS +, all incisions heal well, no redness, Musculoskeletal: no cyanosis or clubbing, extremities motor strength 5/5 Skin: no rashes, warm and dry Neurologic: awake Psychiatric: Orientation: alert and oriented x 3 Results & Data Vital Signs (Past 12 Hours) Vital Signs Temp Pulse Resp BP BP Pulse Ox 10/26/19 09:12 153/83 H 10/26/19 07:21 36.9 C 100 H 18 174/82 H 91 Laboratory Results Abnormal lab results 10/25/19 10/25/19 10/26/19 Range/Units 17:16 20:41 07:09 WBC 13.00 H (4.8-10.8) K/uL RBC 3.82 L (4.2-5.4) M/uL Hgb 11.4 L (12.0-16.0) g/dL Hct 34.2 L (37-47) % Creatinine (0.6-1.2) mg/dl Glucose (70-99) mg/dl POC Glucose 135 H 210 H (70-99) mg/dl Calcium (8.5-10.1) mg/dl AST (15-37) U/L Total Protein (6.4-8.2) gm/dl Albumin (3.4-5.0) gm/dl 10/26/19 10/26/19 10/26/19 Range/Units 07:09 08:21 12:00 WBC (4.8-10.8) K/uL RBC (4.2-5.4) M/uL Hgb (12.0-16.0) g/dL Hct (37-47) % Creatinine 0.48 L (0.6-1.2) mg/dl Glucose 155 H (70-99) mg/dl POC Glucose 148 H 175 H (70-99) mg/dl Calcium 8.4 L (8.5-10.1) mg/dl AST 13 L (15-37) U/L Total Protein 6.1 L (6.4-8.2) gm/dl Albumin 2.2 L (3.4-5.0) gm/dl
--- NOTE | 2019-11-03 10:16 | Discharge Summary ---
Date of Service November 03, 2019 Admission HPI Per Admitting Provider 63 y/o female with epigastric pain, back pain and bloating that began two days ago after dinner. Had two other episodes since February but not as severe and resolved within a few hours. Principal Diagnosis 1. Cholelithiasis, chronic cholecystitis 2. Choledocholithiasis Discharge Exam Gastrointestinal (Abdomen) Inspection/Auscultation: + abdominal surgical incision (clean, dry) and + abdominal surgical drain present Percussion/Palpation: abdomen soft Discharge Data Allergies Allergy/AdvReac Type Severity Reaction Status Date / Time amoxicillin Allergy Mild Rash Verified 10/18/19 11:45 Consultations 10/18/19 14:46 ED Decision to Admit Stat 10/19/19 08:15 Consult Gastroenterology Routine 10/21/19 08:14 Consult Hospitalist Routine Procedures Performed Operation Date: 10/19/19 12:50 Actual Procedures p Laparoscopic Cholecystectomy (Not Applicable) - Jose Knox, Operation Date: 10/21/19 14:30 Actual Procedures p Endoscopic Ultrasonography Upper(Not Applicable) - Nicole Angulo MD s Endoscopic Retrograde Cholangiopancreatogram, sphincterotomy and placement of biliary stent (Not Applicable) - Nicole Angulo MD s Esophagogastroduodenoscopy(Not Applicable) - Nicole Angulo MD Ordered Studies 10/18/19 11:28 US gallbladder Stat 10/18/19 14:20 MR MRCP Urgent 10/21/19 02:22 CT angio chest PE protocol Urgent 10/21/19 15:00 FL ERCP biliary ductal Routine 10/21/19 16:31 US upper EUS PACS images Routine Hospital Course (1) Cholelithiasis: 63 y/o female presented to ED with epigastric and back pain. U/S showed some gallbladder wall thickening and fluid although white count was normal and bilirubin was 2.5. She was admitted to surgical service and MRCP obtained which showed polypoid filling defect vs artifact. Case was discussed with GI, we planned for lap sharmaine with outpatient vs inpatient EUS/ERCP depending on IOC findings. She was taken the next day for lap sharmaine but we were unable to complete IOC due to inflammation. POD 1 bili was 2.2, although that night she became febrile and tachycardic and was transferred to ICU for monitoring. Bilirubin had risen to 3.2 the next morning and she was taken for ERCP. Sludge and debris were removed, stent was placed, and there was evidence of small cys tic duct leak. CONOR drain was continued. She made slow but steady progress over the next few days. Bowel function was slow to return but she began having multiple BMs POD 4. LFT's were trending down. She was transferred to the surgical floor. She had a slight bump in WBC on day 6, but work-up was negative and this was improved on day 7. She was stable for discharge home at that time. Total Time Total Time Spent Total Time Spent (In Minutes): 20 Discharge Plan Discharge Items Patient Disposition: Home - Self-Care Reason For Visit: CHOLELITHIASIS Discharge Diagnosis: laparoscopic cholecystectomy Activity: Per Instructions section Lifting: No more than 10 pounds Bathing Comment: it is ok to shower Driving/Machine Use: Resume 3 days after discharge Non-emergency contact: Surgeon Call non-emergency contact if: you have any medication questions, your pain is not controlled, you have a fever and your temperature is above 101.5 Follow-up/Referrals: Jose Knox DO [Surgeon] - (Call the office to make an appt ) Kwasi Gallardo Jr, DO [Primary Care Provider] - Diet: Regular Addtl Attending Provider Instructions: Pending Studies at Discharge: Yes Studies:: surgical pathology Stand-Alone Forms: My [facility], Opioid Pain Management, Work/School Release (Inpt), Smoking Cessation Medications and DC Order Prescriptions: New hydrocodone-acetaminophen [[place]] 5-325 mg tablet 1 - 2 tab PO Q4H PRN (Reason: pain, initial therapy, max 6 tabs daily) Qty: 15 RF: 0 Continued atorvastatin 40 mg Tablet 40 mg PO HS RF: 0 lisinopril 10 mg tablet 10 mg PO HS RF: 0 Januvia 50 mg tablet 50 mg PO QAM RF: 0 ibuprofen [Advil] 200 mg Tablet 200 mg PO Q6H PRN (Reason: Pain) RF: 0 Discharge Orders: Discharge Order (Routine); Ordered 10/26/19 Ordered By: Lucy Diop/Other Patient Handouts: Understanding Carbohydrates, Cholecystectomy, Understanding Type 2 Diabetes Admission Data Admit Date/Time: 10/20/19 10:53 Attending Provider: Jose Knox Admit Provider: Jose Knox Primary Care Provider: Kwasi Gallardo Jr Other Providers: Ariel Ivy ; Jose Knox ; Ronny Neil Jonathan R Other Interventions: Discharge Summary Assessment (RN) Last Done: 10/26/19 15:18 DC Date/Time DO NOT enter until pt leaves facility: 10/26/19 16:12 Coding Level of Care Code D/C Day Management <30 mins Diagnoses Cholelithiasis K80.20
--- NOTE | 2019-11-19 09:38 | Coding Query ---
SEPSIS Note: Patient was made Inpatient Admission on 10/20/19 and Sepsis is documented on the Hospitalist Consultation on 10/21/19 and on all Hospitalist Progress Notes but there is no mention by attending or on Discharge Summary. Please clarify below, in your clinical opinion, regarding the documentation of Sepsis, the most likely source and the POA status. To promote full compliance with coding requirements relating to patient care, physician participation is requested in all cases of medical record coder uncertainty. Please assist us with the question(s) below: In responding to this query, please exercise your independent professional judgement. The fact that a question is asked does not imply that any particular answer is desired or expected. We appreciate your clarification on this issue. Throughout the medical record, you have clearly documented a localized infection and your patient has clinical evidence of a generalized sepsis or severe sepsis. The term urosepsis is a nonspecific entity and is coded as an UTI. If the patient has sepsis, severe sepsis, from an urinary source or some other source, please clarify in your response below. The medical record reflects the following clinical findings: (With dates as appropriate) (Body temperature of >38.3 C(101 F) or <36 C(96.8F), pulse >90/minute, respirations >20/minute, WBC count >12,000 or <4,000, altered mental status, significant edema or positive fluid balance, hyperglycemia without diabetes, hypotension, metabolic acidosis (elev. lactate level, anion gap or reduced blood pH), shock, positive blood culture (enter organism) ____ ( ) Sepsis Specify Organism Specify Associated Condition/Diagnosis ( ) Present on Admission ( ) Not present on admission ( ) Unable to clinically determine ( ) Other, patient has: (x) No Sepsis - Sepsis is Ruled-Out blood cultures negative. I do not believe pt had sepsis. her tachycardia and fever as documented by hospitalist were from her gallbadder condition/biliary stones. HOLLAND
--- NOTE | 2019-11-19 09:39 | Coding Query ---
Your help is needed for correct coding of this account; please clarify if the patients Post-operative Ileus was: ( ) expected out of the surgery ( ) unexpected complication from the surgery ( x)other please specify pt did not have an ileus. my note states she was at high risk of ileus. mildly dilated loops of bowel with her admitting diagnosis, after lap sharmaine, and certainly after ercp are quite typical. clinically she did not have an ileus. Thank you Ayah Heard [facility]
--- NOTE | 2019-11-19 09:40 | Coding Query ---
Your help is needed for correct coding of this account; please clarify if the patients Post-operative Bile Leak was: ( ) expected out of the surgery ( x) unexpected complication from the surgery ( )other please specify Thank you Ayah LINO
--- NOTE | 2019-11-19 09:44 | Coding Query ---
PRESENT ON ADMISSION QUERY To promote full compliance with coding requirements relating to pateint care, physician participation is requested in all cases of cell pourer uncertainty. Please assist us with the question(s) below: Please place an X within the parenthesis (x). The following diagnosis(es) listed in this patient's medical record require physician assistance to determine if they were present on admission (POA) or not. Please advise for each diagnosis whether it was present on admission, not present on admission, or if it was clinically undetermined. pt did not have an ileus. mildly dilated loops of bowel on xray do not determine ileus. 1. Post Operative Ileus (documentation begins 10/21/19, patient admitted as Inpatient on 10/20/19) ( ) Present On Admission ( ) Not Present On Admission ( x) Clinically Undetermined 2. Post Operative Bile Leak (documentation begins 10/21/19, patient admitted as Inpatient on 10/20/19) ( ) Present On Admission (x ) Not Present On Admission ( ) Clinically Undetermined 3. Cholangitis (documentation begins 10/21/19, patient admitted as Inpatient on 10/20/19) ( ) Present On Admission ( ) Not Present On Admission ( x) Clinically Undetermined Thank you Ayah Heard *Definition of the present on admission (POA)-Present on admission is defined as present at the time the order for inpatient admission occurs. Conditions that develop during an outpatient encounter prior to a written order for inpatient admission (including emergency department, observation, or outpatient surgery) are considered present on admission. MTDD
== END 2019-10-26 16:12 | disposition home or self-care (01) | DRG 418 ==
LOC: 3N 10:35 → ED 10:35 → 3N 16:20 → 1E 10-21 11:49 → 3N 10-24 11:23